=== PATIENT | female | born 1950 | race Caucasian/White ===

== ENCOUNTER → 2017-10-19 | Outpatient (CLI) | payer MEDICARE | LOC: MAMMO 10:33 | PROVIDERS: ATTEND Internal Medicine | DX: Z12.31 Encounter for screening mammogram for malignant neoplasm of breast (principal) | CPT/HCPCS: 77067 ==

== ENCOUNTER 2018-07-27 14:11 | Emergency (ER) | payer OTHER ==
[~2018-07-27] VITALS: Ht 162.6 cm; Wt 61.2 kg
--- OUTSIDE RECORDS SUMMARY | 2018-07-27 14:15 | XMS REPORT | Continuity of Care Document ---
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 Well controlled per Mrs. Shi. Routine blood work, including Keppra and total phenytoin levels, will be drawn. Treatment with the current doses of the same medications will be continued. 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 [facility] Recurrent major depression in partial remission<sup>17, 18</sup> Active 07/09/2016 Problem 07/02/2018 Data migrated from [employer] on 07/04/2016. Well controlled per the patient. Treatment with venlafaxine will be continued. Originally documented as Recurrent major depressive disorder, in partial remission. [facility] Cervical radiculopathy<sup>3, 4, 5, 6</sup> Active 06/30/2016 Problem 07/02/2018 Data migrated from [employer] on 07/04/2016. Please see above. Originally documented as Right cervical radiculopathy. 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 The symptoms the patient describes in the history of present illness and findings on the neurological examination are suggestive of either median neuropathy(ies) at the wrists and/or cervical radiculopathies. Ms. Shi declines further evaluation or darrius Originally documented as Left median nerve neuropathy. 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 With hemorrhagic conversion, s/p resection. Originally documented as Benign neoplasm of brain, unspecified brain region. [facility] STROKE Active 02/27/2016 [facility] Epilepsy<sup>7, 8</sup> Active 10/23/2015 Problem 07/02/2018 Data migrated from [employer] on 06/16/15. The patient s seizures are well controlled with Keppra and phenytoin (when she takes both medications). Routine blood work, including a phenytoin level, will be ordered. Ms. Shi will continue with her current treatment with Keppra and phenytoin. Originally documented as Epilepsy. [facility] Mood disorder of depressed type<sup>15</sup> Active 10/23/2015 Problem 07/02/2018 Data migrated from [employer] on 06/16/15. Well controlled. Treatment with venlafaxine ER will be continued. Originally documented as Depression. [facility] O/E - depressed<sup>16</sup> Active 12/20/2014 Problem 07/02/2018 Data migrated from [employer] on 06/16/15. Stable. Continue treatment with venlafaxine. Originally documented as Depression. [facility] SEIZURE Active 11/11/2014 [facility] SEIZURES Active 11/11/2014 [facility] COMPLEX FOCAL SEIZURES Active 04/29/2014 [facility] LEFT SIDE WEAKNESS Active 03/08/2014 [facility] Acute renal failure Resolved Problem 07/02/2018 [facility] Brain tumor Resolved Problem 07/02/2018 [facility] Breast augmentation Resolved Problem 07/02/2018 [facility] Parkinsons Resolved Problem 07/02/2018 [facility] Peripheral vision loss Resolved Problem 07/02/2018 [facility] Seizure<sup>19</sup> Resolved Problem 07/02/2018 Post brain tumor [facility] Grand mal seizure Resolved Problem 07/02/2018 [facility] MIXER DIAMOND POWDER shunt Resolved Problem 07/02/2018 [facility] Seizure<sup>1</sup> Resolved Problem 03/01/2016 Post brain tumor [facility] Depression Active Problem 12/24/2014 E[facility] Epilepsy Active Diagnosis 12/24/2014 Elig[facility] Bern Depression Active Problem 06/12/2016 Eligio Henrietta Epilepsy Active Problem 06/08/2016 Eligio Henrietta Genital herpes Active Diagnosis 03/29/2015 Eligio Henrietta Nonintractable generalized idiopathic epilepsy without status epilepticus Active Diagnosis 07/13/2016 Eligio Henrietta Recurrent major depressive disorder, in partial remission Active Problem 07/13/2016 Eligio Henrietta Benign neoplasm of brain, unspecified brain region Active Problem 07/13/2016 Eligio Bern Left cervical radiculopathy Active Problem 07/13/2016 Eligio Bern Right cervical radiculopathy Active Problem 07/13/2016 Eligio Bern Left median nerve neuropathy Active Problem 07/13/2016 Eligio Henrietta Right median nerve neuropathy Active Problem 07/13/2016 Eligio Henrietta Medications Medication Details Route Status Patient Instructions Ordering Provider Order Date Source phenytoin 100 mg oral capsule, extended release See Instructions, TAKE 3 CAPSULES BY MOUTH EVERY NIGHT FOR 30 DAYS, # 90 tab, 0 Refill(s), Pharmacy: [facility] [id number] Active 12/02/2017 [facility] Unisom 25 mg, PO, Daily, 0 Refill(s) Active 04/25/2017 [facility] Levetiracetam 500 MG Oral Tablet [Keppra] 1,000 mg=2 tab, PO, BID, # 120 tab, 0 Refill(s) Active 02/27/2016 [facility] Acetaminophen 975 mg, Route: PO, Drug form: TAB, ONCE, Dosing Weight 62.727, kg, Priority: STAT, Start date: 02/27/16 15:28:00 CDT, Stop date: 02/27/16 15:28:00 CDT Inactive 02/27/2016 [facility] Versed 2 mg, Route: IVP, ONCE, Dosing Weight 62.727, kg, Priority: STAT, Start date: 02/27/16 15:18:00 CDT, Stop date: 02/27/16 15:18:00 CDT Inactive 02/27/2016 [facility] iodixanol 150 mL, Route: IVP, Drug Form: SOLN, kg, ONCALL, STAT, Start date: 02/27/16 14:19:00 CDT, Duration: 1 doses or times, Dose=2.2ml/kg, Max [id number] -- "To be infused by Radiology Staff ONLY" Inactive 02/27/2016 [facility] Keppra 1,000 mg, Route: IV, ONCE, kg, Start date: 02/27/16 14:10:00 CDT, Stop date: 02/27/16 14:10:00 CDTNotes: Same as Keppra Mix with 100 mL NS, LR or D5W MEDICATION WASTE Product Size: 500 mg Product Wasted: ___ mg Inactive 02/27/2016 [facility] Saline Flush 0.9% 10 mL, Route: IVP, Drug Form: INJ, kg, PRN, PRN Line Flush, Start date: 02/27/16 13:31:00 CDT, Duration: 30 day, Stop date: 03/28/16 13:30:00 CDTNotes: (Same as: BD Posiflush) Inactive 02/27/2016 [facility] Isolyte S (PH 7.4) 1000 mL 1,000 mL 1,000 mL, Rate: 1,000 ml/hr, Infuse over: 1 hr, Route: IV, Total Volume: 1,000, Priority: STAT, Start date: 02/27/16 13:31:00 CDT, Stop date: 02/27/16 17:30:00 CDTNotes: (Same as: Isolyte S PH 7.4) Inactive 02/27/2016 [facility] Saline Flush 0.9% 10 mL, Route: IVP, Drug Form: INJ, kg, PRN, PRN Line Flush, Start date: 02/27/16 13:30:00 CDT, Duration: 30 day, Stop date: 03/28/16 13:29:00 CDTNotes: (Same as: BD Posiflush) Inactive 02/27/2016 [facility] Acyclovir 1 tablet Orally Active 400 MG Orally as needed Bern 03/28/2015 Eligio Bern Phenytoin Sodium Extended 3 capsules Orally Active 100 mg Orally Once every night Jose Ramon 12/16/2014 Eligio Henrietta phenytoin extended release 300 mg, 3 cap, Route: PO, Drug form: ERCAP, Bedtime, Dosing Weight 64.574, kg, Start date: 11/12/14 21:00:00, Duration: 30 day, Stop date: 12/11/14 21:00:00 Inactive 11/13/2014 [facility] Sodium Chloride 0.9% IV 25 mL, Route: IV, Start date: 11/12/14 11:14:00, Duration: 30 day, Stop date: 12/12/14 11:13:00, PRN Line Flush Inactive 11/12/2014 [facility] BD Normal Saline Flush 10 mL, Route: IV, Drug Form: INJ, PRN, PRN Line Flush, Start date: 11/12/14 11:14:00, Duration: 30 day, Stop date: 12/12/14 11:13:00Notes: (Same as: BD Posiflush) Inactive 11/12/2014 [facility] Levetiracetam 1000 MG Oral Tablet [Keppra] 1,000 mg=1 tab, PO, BID, # 60 tab, 2 Refill(s) Active 11/12/2014 [facility] phenytoin 100 mg oral capsule, extended release 300 mg=3 cap, PO, Bedtime, # 90 cap, 0 Refill(s) Active 11/12/2014 [facility] venlafaxine 150 mg, 1 cap, Route: PO, Drug form: ERCAP, Daily, Dosing Weight 64.574, kg, Start date: 11/12/14 9:00:00, Duration: 30 day, Stop date: 12/11/14 9:00:00Notes: Do not open, crush, or chew. (Same As: Effexor XR) Inactive 11/12/2014 [facility] Dilantin 100 mg, 2 mL, Route: IVP, Drug form: INJ, Q8H, Dosing Weight 61.364, kg, Start date: 11/12/14 4:00:00, Duration: 30 day, Stop date: 12/11/14 20:00:00Notes: (Same as: Dilantin) Do not infuse greater than 50 mg/min. MEDICATION WASTE Product Size: 100 mg Product Wasted: ___ mg Inactive 11/12/2014 [facility] Levetiracetam 1000 MG Oral Tablet [Keppra] 1,000 mg=1 tab, PO, BID, # 60 tab, 0 Refill(s) No Longer Active 11/12/2014 [facility] Levetiracetam 1000 MG Oral Tablet [Keppra] 1,000 mg, 2 tab, Route: PO, Drug form: TAB, Q12H, Dosing Weight 61.364, kg, Start date: 11/11/14 22:00:00, Duration: 30 day, Stop date: 12/11/14 21:00:00Notes: (Same as:Keppra) No Longer Active 11/12/2014 [facility] Docusate 100 mg, 1 cap, Route: PO, Drug form: CAP, BID, Dosing Weight 61.364, kg, PRN Constipation, Start date: 11/11/14 21:06:00, Duration: 30 day, Stop date: 12/11/14 21:05:00Notes: (Same as: Colace) (Do Not Crush) No Longer Active 11/12/2014 [facility] Acetaminophen 650 mg, 2 tab, Route: PO, Drug form: TAB, Q4H, Dosing Weight 61.364, kg, PRN Pain 1-3/Temp > 100.4 F, Start date: 11/11/14 21:06:00, Duration: 30 day, Stop date: 12/11/14 21:05:00Notes: Do not exceed 4 gm/day. (Same as: Tylenol) No Longer Active 11/12/2014 [facility] Acetaminophen 325 MG / Hydrocodone Bitartrate 5 MG Oral Tablet 1 tab, Route: PO, Drug Form: TAB, Dosing Weight 61.364, kg, Q4H, PRN Pain Score 1-3, Start date: 11/11/14 21:06:00, Duration: 30 day, Stop date: 12/11/14 21:05:00Notes: (Same as: [place] 325/5) Do not exceed 4gm/day of acetaminophen. No Longer Active 11/12/2014 [facility] fosphenytoin 1,227.28 mg, 24.55 mL, Route: IVPB, Drug form: INJ, ONCE, Dosing Weight 61.364, kg, Priority: STAT, Start date: 11/11/14 20:14:00, Stop date: 11/11/14 20:14:00Notes: (Same as: Cerebyx) Stated mg=mgPE. Refrigerate ANTICONVULSANT Do not confuse with celebrex. MEDICATION WASTE Product Size: 500 mg Product Wasted: 727.28 mg Inactive 11/12/2014 [facility] Saline Flush 0.9% 10 mL, Route: IVP, Drug Form: INJ, Dosing Weight 61.364, kg, PRN, PRN Line Flush, Start date: 11/11/14 18:21:00, Duration: 30 day, Stop date: 12/11/14 18:20:00Notes: (Same as: BD Posiflush) No Longer Active 11/11/2014 [facility] Vimpat 1 tablet Orally Active 100 MG Orally Twice a day Jose Ramon 05/06/2014 Eligio Potts Keppra 1,000 mg, 2 tab, Route: PO, Drug form: TAB, Q12H, Dosing Weight 60.4, kg, Start date: 03/09/14 21:00:00, Duration: 30 day, Stop date: 04/08/14 9:00:00Notes: (Same as:Keppra) Inactive 03/10/2014 [facility] Enoxaparin 40 mg, 0.4 mL, Route: SUB-Q, Drug form: INJ, [id number], Dosing Weight 60.4, kg, Start date: 03/09/14 13:00:00, Duration: 30 day, Stop date: 04/07/14 13:00:00Notes: (Same as: Lovenox) Inactive 03/09/2014 [facility] Levetiracetam 500 MG Oral Tablet 1,000 mg=2 tab, PO, Q12H, # 2 tab, 1 Refill(s) Active 03/09/2014 [facility] BD Normal Saline Flush 5 mL, Route: IV, Drug Form: INJ, PRN, PRN Line Flush, Start date: 03/09/14 3:02:00, Duration: 30 day, Stop date: 04/08/14 2:01:00Notes: (Same as: BD Posiflush) Inactive 03/09/2014 [facility] Sodium Chloride 0.9% IV 25 mL, Route: IV, Start date: 03/09/14 3:02:00, Duration: 30 day, Stop date: 04/08/14 2:01:00, PRN Line Flush Inactive 03/09/2014 [facility] venlafaxine 150 mg oral tablet, extended release 150 mg=1 tab, PO, Daily, # 30 tab, 0 Refill(s) Active 03/09/2014 [facility] Lorazepam 1 mg, 0.5 mL, Route: IVP, Drug form: INJ, Q15Min, Dosing Weight 60.006, kg, PRN Seizure, Start date: 03/08/14 18:45:00, Duration: 30 day, Stop date: 04/07/14 17:44:00Notes: (Same as: Ativan) No Longer Active 03/08/2014 [facility] Fluoxetine =1 cap, PO, Daily, 0 Refill(s) Inactive 03/08/2014 [facility] Keppra 1,000 mg, 100 mL, Route: IV, Drug form: SOLN, [id number], Dosing Weight 78.182, kg, Priority: NOW, Start date: 03/08/14 15:32:00, Duration: 30 day, Stop date: 04/07/14 3:32:00 No Longer Active 03/08/2014 [facility] Saline Flush 0.9% 10 mL, Route: IVP, Drug Form: INJ, Dosing Weight 78.182, kg, PRN, PRN Line Flush, Start date: 03/08/14 14:31:00, Duration: 30 day, Stop date: 04/07/14 13:30:00Notes: (Same as: BD Posiflush) No Longer Active 03/08/2014 [facility] Saline Flush 0.9% 10 mL, Route: IVP, Drug Form: INJ, Dosing Weight 78.182, kg, PRN, PRN Line Flush, Start date: 03/08/14 14:30:00, Duration: 30 day, Stop date: 04/07/14 13:29:00Notes: (Same as: BD Posiflush) No Longer Active 03/08/2014 [facility] Venlafaxine HCl ER 1 tablet with food Orally Active 150MG Orally Once a day Bern Eligio Bern Levetiracetam 1 tablet Orally Active 1000 mg Orally Twice a day Jose Ramon Eligio Henrietta Sleep Aid 1 tablet at bedtime as needed Orally Active Orally Once a day Jose Ramon Eligio Bern Levetiracetam 1 tablet Orally Active 1000 mg Orally Twice a day Jose Ramon Eligio Bern Levetiracetam 2.5 tablets Orally Active 500 MG Orally Twice a day Jose Ramon Potts Night Time Sleep Aid 1 tablet at bedtime Orally Active 50 mg Orally Once a day Henrietta Eligio Jamesum Levetiracetam 1 tablet Orally Active 250 MG Orally Twice a day Jose Ramon Eligio Jamesum Levetiracetam 1 tablet Orally Active 1000MG Orally Twice a day Henrietta Eligio Henrietta Phenytoin Sodium Extended 3 capsules Once every night Orally 30 days Orally Active 100 MG Orally Once a day Bern Eligio Bern Phenytoin Sodium Extended TAKE 3 CAPSULES BY MOUTH EVERY NIGHT FOR 30 DAYS NA Active 100MG Henrietta Ledbetter Henrietta Allergies, Adverse Reactions, Alerts Substance Category Reaction Severity Reaction type Status Date Reported Comments Source N.K.D.A. Adverse Reaction Info Not Available Adverse Reaction Active 06/30/2016 E[facility]io [facility] Immunizations Immunization Date Given Site Status Last Updated Comments Source influenza virus vaccine, inactivated 04/30/2014 Left deltoid completed [facility] Results Order Name Results Value Reference Range Date Interpretation Comments Source Foot series DX Foot series DX EXAM: XR LEFT FOOT 3 VIEWS EXAM: XR RIGHT FOOT 3 VIEWS DATE: 09/22/2017 11:38 AM CDT INDICATION: - s/p jump from 5 ft, landed on feet w/ B midfoot/heel pain. mild TTP L1-2 midline COMPARISON: None TECHNIQUE: AP, lateral and oblique radiographs of each foot DISCUSSION: No acute fracture or malalignment is identified. No soft tissue abnormality is identified. IMPRESSION: No acute abnormality. 09/22/2017 - - Read by: Thomas Bob MD Dictated Date/time: 09/22/17 12:43 Electronically Signed by: Thomas Bob MD 09/22/17 12:44 FINAL REPORT [facility] Spine lumbar 2 or 3 views DX Spine lumbar 2 or 3 views DX EXAM: XR LUMBAR SPINE 3 VIEWS DATE: 09/22/2017 11:38 AM CDT INDICATION: - s/p jump from 5 ft, landed on feet w/ B midfoot/heel pain. mild TTP L1-2 midline COMPARISON: None TECHNIQUE: AP, coned lateral and lateral radiographs of the lumbar spine FINDINGS: No fracture or other acute bony or articular abnormality is present. Alignment is within normal limits. There is no significant osseous degenerative change. No soft tissue abnormality is identified. IMPRESSION: No acute abnormality. 09/22/2017 - - Read by: Thomas Bob MD Dictated Date/time: 09/22/17 12:44 Electronically Signed by: Thomas Bob MD 09/22/17 12:45 FINAL REPORT [facility] Foot series DX Foot series DX EXAM: XR LEFT FOOT 3 VIEWS EXAM: XR RIGHT FOOT 3 VIEWS DATE: 09/22/2017 11:38 AM CDT INDICATION: - s/p jump from 5 ft, landed on feet w/ B midfoot/heel pain. mild TTP L1-2 midline COMPARISON: None TECHNIQUE: AP, lateral and oblique radiographs of each foot DISCUSSION: No acute fracture or malalignment is identified. No soft tissue abnormality is identified. IMPRESSION: No acute abnormality. 09/22/2017 - - Read by: Thomas Bob MD Dictated Date/time: 09/22/17 12:43 Electronically Signed by: Thomas Bob MD 09/22/17 12:44 FINAL REPORT [facility] CHEM PANEL Phosphorus 3.2 mg/dL 2.5 - 4.5 02/27/2016 [facility] CHEM PANEL Magnesium Lvl 2.2 mg/dL 1.8 - 2.4 02/27/2016 [facility] CHEM PANEL Lactic Acid Lvl 1.5 mMol/L 0.5 - 2.2 02/27/2016 [facility] TOXICOLOGY Phenytoin Total 6.0 ug/ml 10.0 - 20.0 02/27/2016 Result Comment: Specimen Moderately Hemolyzed. [facility] DRUG SCREEN U Opiate Scr Negative *NA* (02/27/16 3:30 PM) Negative 02/27/2016 [facility] DRUG SCREEN U Cannab Scr Negative *NA* (02/27/16 3:30 PM) Negative 02/27/2016 [facility] DRUG SCREEN U Benzodia Scr Positive *ABN* (02/27/16 3:30 PM) Negative 02/27/2016 [facility] DRUG SCREEN U Cocaine Scr Negative *NA* (02/27/16 3:30 PM) Negative 02/27/2016 [facility] DRUG SCREEN U Marissa Scr Negative *NA* (02/27/16 3:30 PM) Negative 02/27/2016 [facility] DRUG SCREEN UDS Note See Note (02/27/16 3:30 PM) 02/27/2016 [facility] DRUG SCREEN U Phencyc Scr Negative *NA* (02/27/16 3:30 PM) Negative 02/27/2016 [facility] DRUG SCREEN U Amph Scr Negative *NA* (02/27/16 3:30 PM) Negative 02/27/2016 [facility] URINE AND STOOL UA Nitrite Positive *ABN* (02/27/16 2:30 PM) Negative 02/27/2016 [facility] URINE AND STOOL UA Urobilinogen 0.2 EU/dL 0.1 - 1.0 02/27/2016 [facility] URINE AND STOOL UA Blood Trace *ABN* (02/27/16 2:30 PM) Negative 02/27/2016 [facility] URINE AND STOOL UA Leuk Est Small *ABN* (02/27/16 2:30 PM) Negative 02/27/2016 [facility] URINE AND STOOL UA Glucose Negative (02/27/16 2:30 PM) Negative 02/27/2016 [facility] URINE AND STOOL UA Bili Negative *NA* (02/27/16 2:30 PM) Negative 02/27/2016 [facility] URINE AND STOOL UA Ketones Negative *NA* (02/27/16 2:30 PM) Negative 02/27/2016 [facility] URINE AND STOOL UA Protein Negative (02/27/16 2:30 PM) Negative 02/27/2016 [facility] URINE AND STOOL UA pH 7.5 5.0 - 8.0 02/27/2016 [facility] URINE AND STOOL UA Spec Grav 1.015 <=1.030 02/27/2016 [facility] URINE AND STOOL UA Turbidity Slight Cloudy (02/27/16 2:30 PM) Clear 02/27/2016 [facility] URINE AND STOOL UA Color Yellow *NA* (02/27/16 2:30 PM) Yellow 02/27/2016 [facility] URINE AND STOOL UA Amorph Lu Occasional /HPF None Seen /HPF 02/27/2016 [facility] URINE AND STOOL UA Bacteria Many /HPF None Seen /HPF 02/27/2016 [facility] URINE AND STOOL UA Sq Epi Occasional /LPF Few /LPF 02/27/2016 [facility] URINE AND STOOL UA RBC 3-5 /HPF 0 - 2 02/27/2016 [facility] URINE AND STOOL UA WBC 6-10 /HPF None Seen /HPF 02/27/2016 [facility] BLOOD BANK RESULTS Antibody Scrn Negative (02/27/16 2:10 PM) 02/27/2016 [facility] BLOOD BANK RESULTS ABO/Rh A POS 02/27/2016 [facility] CHEM PANEL POC Creatinine 1.0 mg/dL 0.5 - 1.4 02/27/2016 [facility] CHEM PANEL eGFR 42 mL/min/1.73m2 02/27/2016 Result Comment: The eGFR is calculated using the CKD-EPI formula. In most young, healthy individuals the eGFR will be >90 mL/min/1.73m2. The eGFR declines with age. An eGFR of 60-89 may be normal in some populations, particularly the elderly, for whom the CKD-EPI formula has not been extensively validated. Use of the eGFR is not recommended in the following populations: Individuals with unstable creatinine concentrations, including patients and those with serious co-morbid conditions. Patients with extremes in muscle mass or diet. The data above are obtained from the National Kidney Disease Education Program (NKDEP) which additionally recommends that when the eGFR is used in patients with extremes of body mass index for purposes of drug dosing, the eGFR should be multiplied by the estimated BMI. [facility] CARDIAC ENZYMES CK MB Index 1.1 0.0 - 2.5 02/27/2016 [facility] CARDIAC ENZYMES Troponin-I 0.03 ng/mL 0.00 - 0.40 02/27/2016 [facility] CARDIAC ENZYMES Total CK 108 unit/L 12 - 191 02/27/2016 [facility] CARDIAC ENZYMES CK MB 1.2 ng/mL 0.5 - 3.6 02/27/2016 [facility] CHEM PANEL Lactic Acid Lvl 10.2 mMol/L 0.5 - 2.2 02/27/2016 Result Comment: Critical Result(s) called to at 02/27/2016 14:08_ by_cMaria Doloreskirkland. Read back OK. [facility] ELECTROLYTES AGAP 22.6 meq/L 10.0 - 20.0 02/27/2016 [facility] ELECTROLYTES eGFR 36 mL/min/1.73m2 02/27/2016 Result Comment: The eGFR is calculated using the CKD-EPI formula. In most young, healthy individuals the eGFR will be >90 mL/min/1.73m2. The eGFR declines with age. An eGFR of 60-89 may be normal in some populations, particularly the elderly, for whom the CKD-EPI formula has not been extensively validated. Use of the eGFR is not recommended in the following populations: Individuals with unstable creatinine concentrations, including patients and those with serious co-morbid conditions. Patients with extremes in muscle mass or diet. The data above are obtained from the National Kidney Disease Education Program (NKDEP) which additionally recommends that when the eGFR is used in patients with extremes of body mass index for purposes of drug dosing, the eGFR should be multiplied by the estimated BMI. [facility] ELECTROLYTES Potassium Lvl 3.6 meq/L 3.5 - 5.1 02/27/2016 [facility] ELECTROLYTES Sodium Lvl 143 meq/L 135 - 145 02/27/2016 [facility] ELECTROLYTES Creatinine Lvl 1.12 mg/dL 0.50 - 1.40 02/27/2016 [facility] ELECTROLYTES BUN 12 mg/dL 7 - 22 02/27/2016 [facility] ELECTROLYTES Chloride Lvl 102 meq/L 95 - 109 02/27/2016 [facility] ELECTROLYTES CO2 22 meq/L 24 - 32 02/27/2016 [facility] ELECTROLYTES Glucose Lvl 128 mg/dL 70 - 99 02/27/2016 [facility] ELECTROLYTES Calcium Lvl 8.9 mg/dL 8.5 - 10.5 02/27/2016 [facility] ENDOCRINOLOGY S Preg Negative *NA* (02/27/16 1:30 PM) Negative 02/27/2016 [facility] HEMATOLOGY Basophils 0.5 % 0.0 - 1.0 02/27/2016 [facility] HEMATOLOGY Monocytes # 0.4 K/CMM 0.0 - 0.8 02/27/2016 [facility] HEMATOLOGY Segs-Bands # 6.2 K/CMM 1.5 - 8.1 02/27/2016 [facility] HEMATOLOGY Lymphocytes # 1.1 K/CMM 1.0 - 5.5 02/27/2016 [facility] HEMATOLOGY Lymphocytes 14.3 % 20.0 - 40.0 02/27/2016 [facility] HEMATOLOGY Monocytes 4.7 % 2.0 - 12.0 02/27/2016 [facility] HEMATOLOGY Eosinophils 0.4 % 0.0 - 4.0 02/27/2016 [facility] HEMATOLOGY Segs 80.1 % 45.0 - 75.0 02/27/2016 [facility] HEMATOLOGY Estimated % Lysis Rapid 0.8 % 0.0 - 7.5 02/27/2016 [facility] HEMATOLOGY R-time Rapid 0.5 min 0.4 - 0.7 02/27/2016 [facility] [facility] HEMATOLOGY [place] Rapid 0.4 min 02/27/2016 [facility] HEMATOLOGY ACT (TEG) Rapid 97 s 86 - 118 02/27/2016 [facility] HEMATOLOGY K-time Rapid 1.1 min 0.6 - 2.3 02/27/2016 [facility] HEMATOLOGY Max Amplitude Rapid 69 mm 52 - 71 02/27/2016 [facility] HEMATOLOGY Angle Rapid 76 degrees 64 - 80 02/27/2016 [facility] HEMATOLOGY G-value Rapid 10.9 K d/sc 5.0 - 11.6 02/27/2016 [facility] HEMATOLOGY PTT 29.2 s 22.9 - 35.8 02/27/2016 [facility] HEMATOLOGY INR 1.01 0.85 - 1.17 02/27/2016 [facility] HEMATOLOGY PT 13.5 s 12.0 - 14.7 02/27/2016 [facility] HEMATOLOGY Platelet 248 K/CMM 133 - 450 02/27/2016 [facility] HEMATOLOGY RDW 13.6 % 11.5 - 14.5 02/27/2016 [facility] HEMATOLOGY MCHC 33.4 g/dL 32.0 - 36.0 02/27/2016 [facility] HEMATOLOGY MPV 8.2 fL 7.4 - 10.4 02/27/2016 [facility] HEMATOLOGY WBC 7.7 K/CMM 3.7 - 10.4 02/27/2016 [facility] HEMATOLOGY Hgb 14.4 g/dL 12.0 - 16.0 02/27/2016 [facility] HEMATOLOGY MCV 97.5 fL 80.0 - 98.0 02/27/2016 [facility] HEMATOLOGY RBC 4.43 M/CMM 4.20 - 5.40 02/27/2016 [facility] HEMATOLOGY Hct 43.2 % 36.0 - 48.0 02/27/2016 [facility] HEMATOLOGY MCH 32.6 pg 27.0 - 31.0 02/27/2016 [facility] TOXICOLOGY Ethanol Lvl <3.0 mg/dL 02/27/2016 [facility] TOXICOLOGY Etoh (%) <0.003 % 02/27/2016 [facility] Chest 1view DX Chest 1view DX EXAM: XR CHEST 1 VIEW DATE: 02/27/2016 at 1408 hours INDICATION: Grand mal seizure COMPARISON: None available TECHNIQUE: AP chest FINDINGS: Lines and tubes: MIXER DIAMOND POWDER shunt is partially visualized on the right. Lungs and pleura: No pulmonary or pleural based abnormality is identified. Heart and mediastinum: The heart size is normal for technique. The mediastinal contours are normal. Bones: No acute bony abnormality is identified. IMPRESSION: No acute cardiopulmonary abnormality. 02/27/2016 - - Read by: Rose Sanders MD Dictated Date/time: 02/27/16 15:12 Electronically Signed by: Rose Sanders MD 02/27/16 15:13 FINAL REPORT [facility] Spine cervical wo contrast CT Spine cervical wo contrast CT EXAM: CT CERVICAL SPINE WITHOUT CONTRAST DATE: 02/27/2016 at 1337 hours INDICATION: Pain Post Trauma COMPARISON: None. TECHNIQUE: Volumetric CT acquisition of the cervical spine without contrast. Axial, sagittal and coronal reconstructions. IV contrast: None. DLP: 1242 mGy-cm FINDINGS: The spine is imaged from the skull base to the level of T2. There is smooth kyphosis of the cervical spine. Severe multilevel degenerative changes of the spine are visualized most pronounced from C4 to T1 with disc space narrowing, degenerative endplate changes,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 27.0 - 31.0 03/08/2014 [facility] HEMATOLOGY MCV 92.8 fL 80.0 - 98.0 03/08/2014 [facility] HEMATOLOGY MCHC 34.1 g/dL 32.0 - 36.0 03/08/2014 [facility] HEMATOLOGY RBC 4.21 M/CMM 4.20 - 5.40 03/08/2014 [facility] HEMATOLOGY Hct 39.1 % 36.0 - 48.0 03/08/2014 [facility] HEMATOLOGY Hgb 13.3 g/dL 12.0 - 16.0 03/08/2014 [facility] HEMATOLOGY RDW 14.1 % 11.5 - 14.5 03/08/2014 [facility] HEMATOLOGY Platelet 331 K/CMM 133 - 450 03/08/2014 [facility] HEMATOLOGY MPV 8.4 fL 7.4 - 10.4 03/08/2014 [facility] Vital Signs Vital Sign Value Date Comments Source Height 162.56 cm 04/25/2017 [facility] BMI Calculated 22.29 04/25/2017 [facility] Weight 58.909 04/25/2017 [facility] Systolic (mm Hg) 144 04/25/2017 [facility] Diastolic (mm Hg) 79 04/25/2017 [facility] Heart Rate 72 04/25/2017 [facility] Weight 128.6 06/30/2016 [facility] Height 65 06/30/2016 [facility] Heart Rate 76 06/30/2016 [facility] Diastolic (mm Hg) 91 06/30/2016 [facility] Systolic (mm Hg) 150 06/30/2016 [facility] Systolic (mm Hg) 177 02/27/2016 [facility] Diastolic (mm Hg) 93 02/27/2016 [facility] Respitory Rate 63 02/27/2016 [facility] Systolic (mm Hg) 177 02/27/2016 [facility] Diastolic (mm Hg) 93 02/27/2016 [facility] Respitory Rate 61 02/27/2016 [facility] Systolic (mm Hg) 177 02/27/2016 [facility] Diastolic (mm Hg) 93 02/27/2016 [facility] Respitory Rate 61 02/27/2016 [facility] BMI Calculated 23.74 02/27/2016 [facility] Weight 62.727 02/27/2016 [facility] Height 162.56 cm 02/27/2016 [facility] Heart Rate 86 02/27/2016 [facility] Weight 140.8 10/23/2015 [facility] Height 65 10/23/2015 [facility] Heart Rate 66 10/23/2015 [facility] Diastolic (mm Hg) 83 10/23/2015 [facility] Systolic (mm Hg) 121 10/23/2015 [facility] Weight 138.8 08/21/2015 [facility] Height 65 08/21/2015 [facility] Heart Rate 73 08/21/2015 [facility] Diastolic (mm Hg) 90 08/21/2015 [facility] Systolic (mm Hg) 166 08/21/2015 [facility] Weight 133.6 03/28/2015 Eligio Henri[facility] Height 65 03/28/2015 [facility] Heart Rate 80 03/28/2015 [facility] Diastolic (mm Hg) 89 03/28/2015 [facility] Systolic (mm Hg) 135 03/28/2015 [facility] Weight 134.8 12/20/2014 [facility] Height 65 12/20/2014 [facility] Heart Rate 70 12/20/2014 [facility] Diastolic (mm Hg) 80 12/20/2014 [facility] Systolic (mm Hg) 159 12/20/2014 [facility] Systolic (mm Hg) 148 11/12/2014 [facility] Diastolic (mm Hg) 56 11/12/2014 [facility] Temperature Oral (F) 98.1 F 11/12/2014 [facility] Systolic (mm Hg) 120 11/12/2014 [facility] Diastolic (mm Hg) 66 11/12/2014 [facility] Heart Rate 71 11/12/2014 [facility] Respitory Rate 18 11/12/2014 [facility] Systolic (mm Hg) 133 11/12/2014 [facility] Diastolic (mm Hg) 72 11/12/2014 [facility] Temperature Oral (F) 98.4 F 11/12/2014 [facility] Heart Rate 61 11/12/2014 [facility] Respitory Rate 18 11/12/2014 [facility] Heart Rate 75 11/12/2014 [facility] Temperature Oral (F) 97.9 F 11/12/2014 [facility] Respitory Rate 17 11/12/2014 [facility] Weight 64.574 11/12/2014 [facility] BMI Calculated 24.44 11/12/2014 [facility] Height 162.56 cm 11/12/2014 [facility] Weight 61.364 11/11/2014 [facility] BMI Calculated 23.22 11/11/2014 [facility] Height 162.56 cm 11/11/2014 [facility] Weight 137.0 10/24/2014 [facility] Height 65 10/24/2014 [facility] Heart Rate 56 10/24/2014 [facility] Diastolic (mm Hg) 78 10/24/2014 [facility]etta Systolic (mm Hg) 116 10/24/2014 [facility] Diastolic (mm Hg) 87 03/09/2014 [facility] Temperature Oral (F) 98.2 F 03/09/2014 [facility] Respitory Rate 15 03/09/2014 [facility] Systolic (mm Hg) 132 03/09/2014 [facility] Systolic (mm Hg) 140 03/09/2014 [facility] Respitory Rate 14 03/09/2014 [facility] Temperature Oral (F) 98.4 F 03/09/2014 [facility] Diastolic (mm Hg) 86 03/09/2014 [facility] Systolic (mm Hg) 164 03/09/2014 [facility] Diastolic (mm Hg) 75 03/09/2014 [facility] Respitory Rate 13 03/09/2014 [facility] Temperature Oral (F) 98 F 03/09/2014 [facility] BMI Calculated 22.86 03/09/2014 [facility] Weight 60.4 03/09/2014 [facility] Height 162.56 cm 03/09/2014 [facility] Height 162.56 cm 03/08/2014 [facility] BMI Calculated 22.71 03/08/2014 [facility] Weight 60.006 03/08/2014 [facility] Heart Rate 74 03/08/2014 [facility] Height 175.26 cm 03/08/2014 [facility] Heart Rate 79 03/08/2014 [facility] BMI Calculated 25.45 03/08/2014 [facility] Weight 78.182 03/08/2014 [facility] Heart Rate 96 03/08/2014 [facility] Encounters Location Location Details Encounter Type Encounter Number Reason For Visit Attending Provider ADM Date DC Date Status Source [facility] OBS Observation Patient [id number] Luther Brito 03/08/2014 03/09/2014 [facility] Eligio Potts MD, PA f/u [id number] 07/29/2014 07/29/2014 Eligio Potts MD, PA f/u [id number] 07/29/2014 07/29/2014 Eligio Potts MD, PA f/u [id number] 07/29/2014 07/29/2014 Eligio Potts MD, PA f/u [id number] 07/29/2014 07/29/2014 Eligio Potts MD, PA f/u [id number] 07/29/2014 07/29/2014 Eligio Potts MD, PA f/u [id number] 07/29/2014 07/29/2014 Eligio Potts MD, PA f/u [id number] 07/29/2014 07/29/2014 Eligio Potts MD, PA f/u [id number] 07/29/2014 07/29/2014 Eligio Potts MD, PA f/u [id number] 07/29/2014 07/29/2014 Eligio Potts MD, PA f/u [id number] 07/29/2014 07/29/2014 Eligio Potts MD, PA f/u [id number] 07/29/2014 07/29/2014 Eligio Potts MD, PA f/u [id number] 07/29/2014 07/29/2014 Eligio Potts MD, PA f/u [id number] 07/29/2014 07/29/2014 Eligio Potts MD, PA f/u [id number] 07/29/2014 07/29/2014 Eligio Potts MD, PA f/u [id number] 07/29/2014 07/29/2014 Eligio Potts MD, PA f/u [id number] 07/29/2014 07/29/2014 Eligio Potts MD, PA f/u [id number] 07/29/2014 07/29/2014 Eligio Potts MD, PA Allergy to new medication [id number] 08/29/2014 08/29/2014 Eligio Potts MD, PA Allergy to new medication [id number] 08/29/2014 08/29/2014 Eligio Potts MD, PA Allergy to new medication [id number] 08/29/2014 08/29/2014 Eligio Potts MD, PA Allergy to new medication [id number] 08/29/2014 08/29/2014 Eligio Potts MD, PA Allergy to new medication [id number] 08/29/2014 08/29/2014 Eligio Potts MD, PA Allergy to new medication [id number] 08/29/2014 08/29/2014 Eligio Potts MD, PA Allergy to new medication [id number] 08/29/2014 08/29/2014 Eligio Potts MD, PA Allergy to new medication [id number] 08/29/2014 08/29/2014 Eligio Potts MD, PA Allergy to new medication [id number] 08/29/2014 08/29/2014 Eligio Potts MD, PA Allergy to new medication [id number] 08/29/2014 08/29/2014 Eligio Potts MD, PA Allergy to new medication [id number] 08/29/2014 08/29/2014 Eligio Potts MD, PA Allergy to new medication [id number] 08/29/2014 08/29/2014 Eligio Potts MD, PA Allergy to new medication [id number] 08/29/2014 08/29/2014 Eligio Potts MD, PA Allergy to new medication [id number] 08/29/2014 08/29/2014 Eligio Potts MD, PA Allergy to new medication [id number] 08/29/2014 08/29/2014 Eligio Potts MD, PA Allergy to new medication [id number] 08/29/2014 08/29/2014 Eligio Potts MD, PA Allergy to new medication [id number] 08/29/2014 08/29/2014 Eligio Potts MD, PA 2 month fu [id number] 10/24/2014 10/24/2014 Eligio Potts MD, PA 2 month fu [id number] 10/24/2014 10/24/2014 Eligio Potts MD, PA 2 month fu [id number] 10/24/2014 10/24/2014 Eligio Potts MD, PA 2 month fu [id number] 10/24/2014 10/24/2014 Eligio Potts MD, PA 2 month fu [id number] 10/24/2014 10/24/2014 Eligio Potts MD, PA 2 month fu [id number] 10/24/2014 10/24/2014 Eligio Potts MD, PA 2 month fu [id number] 10/24/2014 10/24/2014 Eligio Potts MD, PA 2 month fu [id number] 10/24/2014 10/24/2014 Eligio Potts MD, PA 2 month fu [id number] 10/24/2014 10/24/2014 Eligio Potts MD, PA 2 month fu [id number] 10/24/2014 10/24/2014 Eligio Potts MD, PA 2 month fu [id number] 10/24/2014 10/24/2014 Eligio Potts MD, PA 2 month fu [id number] 10/24/2014 10/24/2014 Eligio Potts MD, PA 2 month fu [id number] 10/24/2014 10/24/2014 Eligio Potts MD, PA 2 month fu [id number] 10/24/2014 10/24/2014 Eligio Potts MD, PA 2 month fu [id number] 10/24/2014 10/24/2014 Eligio Potts MD, PA 2 month fu [id number] 10/24/2014 10/24/2014 Eligio Potts MD, PA Rx Refill [id number] 11/06/2014 11/06/2014 Eligio Potts MD, PA Rx Refill [id number] 11/06/2014 11/06/2014 Eligio Potts MD, PA Rx Refill [id number] 11/06/2014 11/06/2014 Eligio Potts MD, PA Rx Refill [id number] 11/06/2014 11/06/2014 Eligio Potts MD, PA Rx Refill [id number] 11/06/2014 11/06/2014 Eligio Potts MD, PA Rx Refill [id number] 11/06/2014 11/06/2014 Eligio Potts MD, PA Rx Refill [id number] 11/06/2014 11/06/2014 Eligio Potts MD, [place] Rx Refill [id number] 11/06/2014 11/06/2014 Eligio Potts MD, [place] Rx Refill [id number] 11/06/2014 11/06/2014 Eligio Potts MD, [place] Rx Refill [id number] 11/06/2014 11/06/2014 Eligio Potts MD, [place] Rx Refill [id number] 11/06/2014 11/06/2014 Eligio Potts MD, PA Rx Refill [id number] 11/06/2014 11/06/2014 Eligio Potts MD, PA Rx Refill [id number] 11/06/2014 11/06/2014 Eligio Potts MD, [place] Rx Refill [id number] 11/06/2014 11/06/2014 Eligio Potts MD, PA Rx Refill [id number] 11/06/2014 11/06/2014 Eligio Potts [facility] OBS Observation Patient [id number] Al Caruso 11/11/2014 11/12/2014 [facility] Eligio Potts MD, PA Phenytoin Refill [id number] 12/16/2014 12/16/2014 Eligio Potts MD, [place] Phenytoin Refill [id number] 12/16/2014 12/16/2014 Eligio Potts MD, [place] Phenytoin Refill [id number] 12/16/2014 12/16/2014 Eligio Potts MD, [place] Phenytoin Refill [id number] 12/16/2014 12/16/2014 Eligio Potts MD, [place] Phenytoin Refill [id number] 12/16/2014 12/16/2014 Eligio Potts MD, [place] Phenytoin Refill [id number] 12/16/2014 12/16/2014 Eligio Potts MD, [facility] Phenytoin Refill [id number] 12/16/2014 12/16/2014 Eligio Potts MD, [facility] Phenytoin Refill [id number] 12/16/2014 12/16/2014 Eligio Potts MD, [place] Phenytoin Refill [id number] 12/16/2014 12/16/2014 Eligio Potts MD, PA Phenytoin Refill [id number] 12/16/2014 12/16/2014 Eligio Potts MD, PA Phenytoin Refill [id number] 12/16/2014 12/16/2014 Eligio Potts MD, PA Phenytoin Refill [id number] 12/16/2014 12/16/2014 Eligio Potts MD, PA Phenytoin Refill [id number] 12/16/2014 12/16/2014 Eligio Potts MD, PA Phenytoin Refill [id number] 12/16/2014 12/16/2014 Eligio Potts MD, PA Phenytoin Refill [id number] 12/16/2014 12/16/2014 Eligio Potts MD, PA seizures [id number] 12/20/2014 12/20/2014 Eligio Potts MD, PA seizures [id number] 12/20/2014 12/20/2014 Eligio Potts MD, PA seizures [id number] 12/20/2014 12/20/2014 Eligio Potts MD, PA seizures [id number] 12/20/2014 12/20/2014 Eligio Potts MD, PA seizures [id number] 12/20/2014 12/20/2014 Eligio Potts MD, PA seizures [id number] 12/20/2014 12/20/2014 Eligio Potts MD, [place] seizures [id number] 12/20/2014 12/20/2014 Eligio Potts MD, PA seizures [id number] 12/20/2014 12/20/2014 Eligio Potts MD, PA seizures [id number] 12/20/2014 12/20/2014 Eligio Potts MD, PA seizures [id number] 12/20/2014 12/20/2014 Eligio Potts MD, PA seizures [id number] 12/20/2014 12/20/2014 Eligio Potts MD, PA seizures [id number] 12/20/2014 12/20/2014 Eligio Potts MD, [place] seizures [id number] 12/20/2014 12/20/2014 Eligio Potts MD, PA seizures [id number] 12/20/2014 12/20/2014 Eligio Potts MD, PA seizures [id number] 12/20/2014 12/20/2014 Eligio Potts MD, PA Unknown [id number] 12/23/2014 12/23/2014 Eligio Potts MD, PA Unknown [id number] 12/23/2014 12/23/2014 Eligio Potts MD, PA Unknown [id number] 12/23/2014 12/23/2014 Eligio Potts MD, [place] Unknown [id number] 12/23/2014 12/23/2014 Eligio Potts MD, [place] Unknown [id number] 12/23/2014 12/23/2014 Eligio Potts MD, [place] Unknown [id number] 12/23/2014 12/23/2014 Eligio Potts MD, [place] Unknown [id number] 12/23/2014 12/23/2014 Eligio Potts MD, PA Unknown [id number] 12/23/2014 12/23/2014 Eligio Potts MD, [place] Unknown [id number] 12/23/2014 12/23/2014 Eligio Potts MD, [place] Unknown [id number] 12/23/2014 12/23/2014 Eligio Potts MD, PA Unknown [id number] 12/23/2014 12/23/2014 Eligio Potts MD, PA Unknown [id number] 12/23/2014 12/23/2014 Eligio [place], [place] Unknown [id number] 12/23/2014 12/23/2014 Eligio Potts MD, PA Unknown [id number] 12/23/2014 12/23/2014 Eligio Potts MD, PA Ms. Shi status [id number] 12/31/2014 12/31/2014 Eligio Potts MD, PA Ms. Shi status [id number] 12/31/2014 12/31/2014 Eligio Potts MD, PA Ms. Shi status [id number] 12/31/2014 12/31/2014 Eligio Potts MD, PA Ms. Shi status [id number] 12/31/2014 12/31/2014 Eligio Potts MD, PA Ms. Shi status [id number] 12/31/2014 12/31/2014 Eligio Potts MD, PA Ms. Shi status [id number] 12/31/2014 12/31/2014 Eligio Potts MD, PA Ms. Shi status [id number] 12/31/2014 12/31/2014 Eligio Potts MD, PA Ms. Shi status [id number] 12/31/2014 12/31/2014 Eligio Potts MD, PA Ms. Shi status [id number] 12/31/2014 12/31/2014 Eligio Potts MD, PA Ms. Shi status [id number] 12/31/2014 12/31/2014 Eligio Potts MD, PA Ms. Shi status [id number] 12/31/2014 12/31/2014 Eligio Potts MD, PA Ms. Shi status [id number] 12/31/2014 12/31/2014 Eligio Potts MD, PA Side effects [id number] 02/27/2015 02/27/2015 Eligio Potts MD, PA Side effects [id number] 02/27/2015 02/27/2015 Eligio Potts MD, PA Side effects [id number] 02/27/2015 02/27/2015 Eligio Potts MD, PA Side effects [id number] 02/27/2015 02/27/2015 Eligio Potts MD, PA Side effects [id number] 02/27/2015 02/27/2015 Eligio Potts MD, PA Side effects [id number] 02/27/2015 02/27/2015 Eligio Potts MD, PA Side effects [id number] 02/27/2015 02/27/2015 Eligio oPtts MD, PA Side effects [id number] 02/27/2015 02/27/2015 Eligio Potts MD, PA Side effects [id number] 02/27/2015 02/27/2015 Eligio Potts MD, PA Side effects [id number] 02/27/2015 02/27/2015 Eligio Potts MD, PA Side effects [id number] 02/27/2015 02/27/2015 Eligio Potts MD, PA Side effects [id number] 02/27/2015 02/27/2015 Eligio Potts MD, PA Discuss nose bleeds [id number] 03/28/2015 03/28/2015 Eligio Potts MD, PA Discuss nose bleeds [id number] 03/28/2015 03/28/2015 Eligio Potts MD, PA Discuss nose bleeds [id number] 03/28/2015 03/28/2015 Eligio Potts MD, PA Discuss nose bleeds [id number] 03/28/2015 03/28/2015 Eligio Potts MD, PA Discuss nose bleeds [id number] 03/28/2015 03/28/2015 Eligio Potts MD, PA Discuss nose bleeds [id number] 03/28/2015 03/28/2015 Eligio Potts MD, PA Discuss nose bleeds [id number] 03/28/2015 03/28/2015 Eligio Potts MD, PA Discuss nose bleeds [id number] 03/28/2015 03/28/2015 Eligio Potts MD, PA Discuss nose bleeds [id number] 03/28/2015 03/28/2015 Eligio Potts MD, PA Discuss nose bleeds [id number] 03/28/2015 03/28/2015 Eligio Potts MD, PA Discuss nose bleeds [id number] 03/28/2015 03/28/2015 Eligio Potts MD, PA Discuss nose bleeds [id number] 03/28/2015 03/28/2015 Eligio Potts MD, FIFI Amato [id number] 08/12/2015 08/12/2015 Eligio Potts MD, FIFI Amato [id number] 08/12/2015 08/12/2015 Eligio Potts MD, FIFI Amato [id number] 08/12/2015 08/12/2015 Eligio Potts MD, FIFI Amato [id number] 08/12/2015 08/12/2015 Eligio Potts MD, FIFI Amato [id number] 08/12/2015 08/12/2015 Eligio Potts MD, FIFI Amato [id number] 08/12/2015 08/12/2015 Eligio Potts MD, FIFI Amato [id number] 08/12/2015 08/12/2015 Eligio Potts MD, FIFI Amato [id number] 08/12/2015 08/12/2015 Eligio Potts MD, FIFI Amato [id number] 08/12/2015 08/12/2015 Eligio Potts MD, FIFI Amato [id number] 08/12/2015 08/12/2015 Eligio Potts MD, FIFI Amato [id number] 08/12/2015 08/12/2015 Eligio Potts MD, PA Follow up after hospital discharge. [id number] 08/21/2015 08/21/2015 Eligio Potts MD, PA Follow up after hospital discharge. [id number] 08/21/2015 08/21/2015 Eligio Potts MD, PA Follow up after hospital discharge. [id number] 08/21/2015 08/21/2015 Eligio Potts MD, PA Follow up after hospital discharge. [id number] 08/21/2015 08/21/2015 Eligio Potts MD, PA Follow up after hospital discharge. [id number] 08/21/2015 08/21/2015 Eligio Potts MD, PA Follow up after hospital discharge. [id number] 08/21/2015 08/21/2015 Eligio Potts MD, PA Follow up after hospital discharge. [id number] 08/21/2015 08/21/2015 Eligio Potts MD, PA Follow up after hospital discharge. [id number] 08/21/2015 08/21/2015 Eligio Potts MD, PA Follow up after hospital discharge. [id number] 08/21/2015 08/21/2015 Eligio Potts MD, PA Follow up after hospital discharge. [id number] 08/21/2015 08/21/2015 Eligio Potts MD, PA Rx for phenytoin [id number] 10/01/2015 10/01/2015 Eligio Potts MD, PA Rx for phenytoin [id number] 10/01/2015 10/01/2015 Eligio Potts MD, PA Rx for phenytoin [id number] 10/01/2015 10/01/2015 Eligio Potts MD, PA Rx for phenytoin [id number] 10/01/2015 10/01/2015 Eligio Potts MD, PA Rx for phenytoin [id number] 10/01/2015 10/01/2015 Eligio Potts MD, PA Rx for phenytoin [id number] 10/01/2015 10/01/2015 Eligio Potts MD, PA Rx for phenytoin [id number] 10/01/2015 10/01/2015 Eligio Potts MD, PA Rx for phenytoin [id number] 10/01/2015 10/01/2015 Eligio Potts MD, PA Rx for phenytoin [id number] 10/01/2015 10/01/2015 Eligio Potts Outpatient [id number] MONICA ALBRIGHT M.D. 10/23/2015 Active [facility] Eligio Potts MD, PA 2 month follow up;Rescheduled..Dr. Albright ill [id number] 10/23/2015 10/23/2015 Eligio Potts MD, PA 2 month follow up;Rescheduled..Dr. Jose Ramon mccarty [id number] 10/23/2015 10/23/2015 Eligio Potts MD, PA 2 month follow up;Rescheduled..Dr. Jose Ramon mccarty [id number] 10/23/2015 10/23/2015 Eligio Potts MD, PA 2 month follow up;Rescheduled..Dr. Jose Ramon mccarty [id number] 10/23/2015 10/23/2015 Eligio Potts MD, PA 2 month follow up;Rescheduled..Dr. Jose Ramon mccarty [id number] 10/23/2015 10/23/2015 Eligio Potts MD, PA 2 month follow up;Rescheduled..Dr. Jose Ramon mccarty [id number] 10/23/2015 10/23/2015 Eligio Potts MD, PA 2 month follow up;Rescheduled..Dr. Jose Ramon mccarty [id number] 10/23/2015 10/23/2015 Eligio Potts MD, PA 2 month follow up;Rescheduled..Dr. Jose Ramon mccarty [id number] 10/23/2015 10/23/2015 Eligio Potts [facility] [id number] Deandre Cornell 02/27/2016 02/27/2016 [facility] Eligio Potts MD, PA Seizures [id number] 03/05/2016 03/05/2016 Eligio Potts MD, PA Seizures [id number] 03/05/2016 03/05/2016 Eligio Potts MD, PA Seizures [id number] 03/05/2016 03/05/2016 Eligio Potts MD, PA Seizures [id number] 03/05/2016 03/05/2016 Eligio Potts MD, PA Seizures [id number] 03/05/2016 03/05/2016 Eligio Potts MD, PA Seizures [id number] 03/05/2016 03/05/2016 Eligio Potts MD, PA Seizures [id number] 03/05/2016 03/05/2016 Eligio Potts MD, PA Returned call [id number] 03/12/2016 03/12/2016 Eligio Potts MD, PA Returned call [id number] 03/12/2016 03/12/2016 Eligio Potts MD, PA Returned call [id number] 03/12/2016 03/12/2016 Eligio Potts MD, PA Returned call [id number] 03/12/2016 03/12/2016 Eligio Potts MD, PA Returned call [id number] 03/12/2016 03/12/2016 Eligio Potts MD, PA Returned call [id number] 03/12/2016 03/12/2016 Eligio Potts MD, PA Unknown [id number] 06/04/2016 06/04/2016 Eligio Potts MD, PA Unknown [id number] 06/04/2016 06/04/2016 Eligio Potts MD, PA Unknown [id number] 06/04/2016 06/04/2016 Eligio Potts MD, PA Unknown [id number] 06/04/2016 06/04/2016 Eligio Potts MD, PA Unknown [id number] 06/04/2016 06/04/2016 Eligio Potts MD, PA Symptoms [id number] 06/11/2016 06/11/2016 Eligio Potts MD, PA Symptoms [id number] 06/11/2016 06/11/2016 Eligio Potts MD, PA Symptoms [id number] 06/11/2016 06/11/2016 Eligio Potts MD, PA Symptoms [id number] 06/11/2016 06/11/2016 [facility] [id number] MONICA ALBRIGHT M.D. 06/30/2016 [facility] Marco Potts MD, PA Medication refill [id number] 06/30/2016 06/30/2016 Eligio Potts MD, PA Medication refill [id number] 06/30/2016 06/30/2016 Eligio Potts MD, PA Medication refill [id number] 06/30/2016 06/30/2016 Eligio Potts MD, PA Rx for Venlafaxine [id number] 07/09/2016 07/09/2016 Eligio Potts MD, PA Rx for Venlafaxine [id number] 07/09/2016 07/09/2016 Eligio Potts MD, PA Unknown [id number] 07/12/2016 07/12/2016 Eligio Potts Outpatient [id number] MONICA ALBRIGHT M.D. 12/28/2016 Active [facility] Outpatient [id number] [facility] 04/25/2017 Active [facility] Outpatient [id number] [facility] 04/25/2017 04/26/2017 [facility] Outpatient [id number] KERRY ALVAREZ 10/11/2017 Active [facility] Phone Message [phone] 12/02/2017 12/04/2017 [facility] Outpatient [id number] ELIGIO POTTS 12/13/2017 Active [facility] Ambulatory Pre-Reg [id number] Eligio Potts 12/13/2017 12/13/2017 [facility] Procedures Procedure Code Date Perfomer Comments Source Breast augmentation [id number] [facility] Creation of MIXER DIAMOND POWDER shunt [id number] [facility] Procedure on brain<sup>1</sup> 887722287 muti brain surgeries x4 [facility] Tonsillectomy [id number] [facility] Breast augmentation [id number] [facility] Creation of MIXER DIAMOND POWDER shunt [id number] [facility] Procedure on brain<sup>1</sup> 779902241 muti brain surgeries x4 [facility] Breast augmentation [id number] [facility] Creation of MIXER DIAMOND POWDER shunt [id number] [facility] Procedure on brain<sup>1</sup> [id number] 1muti brain surgeries x4 [facility]
--- OUTSIDE RECORDS SUMMARY | 2018-07-27 14:16 | XMS REPORT ---
Author Author Dr. Judy Albright [facility] [employer] Address Unknown Phone Unavailable Care Team Providers Care Sugar Sampler Name Role Phone Dr. Judy Albright CP Unavailable Allergies, Adverse Reactions, Alerts Substance Reaction Event Type N.K.D.A. Info Not Available Non Drug Allergy Encounters Encounter Location Date Rx Refill Anatoly Shrestha [place], [place] November 06, 2014 Phenytoin Refill Anatoly Shrestha MD, [place] December 16, 2014 seizures Anatoly Shrestha MD, [place] December 20, 2014 Unknown Anatoly Shrestha MD, [place] December 23, 2014 f/u Anatoly Shrestha MD, [place] July 29, 2014 Allergy to new medication Anatoly Shrestha MD, [place] August 29, 2014 2 month fu Anatoly Shrestha MD, [place] October 24, 2014 Discuss nose bleeds Anatoly Shrestha MD, PA Mar 28, 2015 Ms. Shi status Anatoly Shrestha MD, PA Dec 31, 2014 Side effects Anatoly Shrestha MD, PA Feb 27, 2015 Rx for phenytoin Anatoly Shrestha MD, PA October 01, 2015 2 month follow up;Rescheduled..Dr. Albright ill Anatoly Shrestha MD, PA October 23, 2015 [place] Shrestha MD, PA August 12, 2015 Follow up after hospital discharge. Anatoly Shrestha MD, PA August 21, 2015 Problems Problem Type Condition ICD-9 Code Onset Dates Condition Status Problem Depression F32.9 Active Assessment Epilepsy G40.909 Active Problem Epilepsy G40.909 Active Assessment Depression F32.9 Active Medications Medication Code System Code Instructions Start Date End Date Status Dosage Venlafaxine HCl ER [facility] [address]-83 150MG Orally Once a day Active 1 tablet with food Levetiracetam [facility] [address]-82 500 MG Orally Twice a day Active 2.5 tablets Phenytoin Sodium Extended [facility] [address]-43 100 mg Orally Once every night December 16, 2014 Active 3 capsules Acyclovir [facility] [address]-91 400 MG Orally Three times a day Mar 28, 2015 Active 1 tablet Night Time Sleep Aid [facility] [address]-64 50 mg Orally Once a day Active 1 tablet at bedtime Social History Social History Element Qualifiers Date Reported Highest level of education completed: . 2 years of College October 23, 2015 Tobacco Use: . Are you a: former smoker quit in 2009October 23, 2015 Use of recreational / street drugs? . Answer: No October 23, 2015 Marital Status: . October 23, 2015 Caffeine intake? . Status: Yes, What type: Coffee, 1 - 2 cup(s) a day October 23, 2015 Do you exercise? . Answer: Yes, Type: walking 1 mile 2x a week October 23, 2015 Do you drink alcohol? . 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
--- OUTSIDE RECORDS SUMMARY | 2018-07-27 14:16 | XMS REPORT | Summary of Care ---
Author Author [facility] Organization [facility] Address Unknown Phone Unavailable Encounter BASIL Myles(FIN) [id number] Date(s): 04/25/17 - 04/25/17 [facility] [address] [place] [phone] Discharge Disposition: Home or Self Care Attending Physician: Sandra Jackson Vital Signs Most recent to 1 oldest [Reference Range]: Height 162.56 cm (04/25/17 3:15 PM) Blood Pressure 144/79 mmHg [90-140/60-90 mmHg] *HI* (04/25/17 3:15 PM) Peripheral Pulse 72 bpm Rate [60-100 bpm] (04/25/17 3:15 PM) Weight 58.909 kg (04/25/17 3:15 PM) Body Mass Index 22.29 m2 (04/25/17 3:15 PM) Problem List Condition Effective Dates Status Health Status Informant Acute renal Resolved failure(Confirmed) 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)1, 2 Brain Resolved tumor(Confirmed) Breast Resolved augmentation(Confirm ed) Cervical 06/30/16 Active radiculopathy(Confir med)3, 4, 5, 6 Epilepsy(Confirmed)7 10/23/15 Active , 8 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 With hemorrhagic conversion, s/p resection. Originally documented as Benign neoplasm of brain, unspecified brain region. 2Data migrated from [employer] on 07/04/2016. With hemorrhagic conversion, s/p resection. Originally documented as Benign neoplasm of brain, unspecified brain region. 3Data migrated from [employer] on 07/29/2016. Please see above. Originally documented as Left cervical radiculopathy. 4Data migrated from [employer] on 07/29/2016. Please see above. Originally documented as Right cervical radiculopathy. 5Data migrated from [employer] on 07/04/2016. Please see above. Originally documented as Left cervical radiculopathy. 6Data migrated from [employer] on 07/04/2016. Please see above. Originally documented as Right cervical radiculopathy. 7Data migrated from [employer] on 06/16/15. Well controlled. Treatment with phenytoin and Keppra will be continued. Originally documented as Epilepsy. 8Data migrated from [employer] on 06/16/15. The patient s seizures are well controlled with Keppra and phenytoin (when she takes both medications). Routine blood work, including a phenytoin level, will be ordered. Ms. Shi will deidra nue with her current treatment with Keppra and phenytoin. Originally documented as Epilepsy. 9Data migrated from [employer] on 07/29/2016. Well controlled per Mrs. Shi. Routine blood work, including Keppra and total phenytoin levels, will be drawn. Treatment with the current doses of the same medications will be continued. 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 10Data migrated from [employer] on 07/04/2016. Well controlled per Mrs. Shi. Routine blood work, including Keppra and total phenytoin levels, will be drawn. Treatment with the current doses of the same medications will be continued. 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 11Data migrated from [employer] on 07/29/2016. Please see above. 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 12Data migrated from [employer] on 07/29/2016. The symptoms the patient describes in the history of present illness and findings on the neurological examination are suggestive of either median neuropathy(ies) at the wrists and/or cervical radiculopathies. Ms. Shi declines further evaluation or treatment at this time. Originally documented as Left median nerve neuropathy. 13Data migrated from [employer] on 07/04/2016. Please see above. 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 14Data migrated from [employer] on 07/04/2016. The symptoms the patient describes in the history of present illness and findings on the neurological examination are suggestive of either median neuropathy(ies) at the wrists and/or cervical radiculopathies. Ms. Shi declines further evaluation or darrius Originally documented as Left median nerve neuropathy. 15Data migrated from [employer] on 06/16/15. Well controlled. Treatment with venlafaxine ER will be continued. Originally documented as Depression. 16Data migrated from [employer] on 06/16/15. Stable. Continue treatment with venlafaxine. Originally documented as Depression. 17Data migrated from [employer] on 07/29/2016. Well controlled per the patient. Treatment with venlafaxine will be continued. Originally documented as Recurrent major depressive disorder, in partial remission. 18Data migrated from [employer] on 07/04/2016. Well controlled per the patient. Treatment with venlafaxine will be continued. Originally documented as Recurrent major depressive disorder, in partial remission. 19Post brain tumor Allergies, Adverse Reactions, Alerts Substance Reaction Severity Status NKDA Active Medications Unisom 25 mg, PO, Daily, 0 Refill(s) Start Date: 04/25/17 Status: Ordered Results No data available for this section Immunizations Given and Recorded Vaccine Date Status Refusal Reason influenza virus vaccine, inactivated 04/30/14 Given Procedures Procedure Date Related Diagnosis Body Site Breast augmentation Creation of TIME STUDY OBSERVER shunt Creation of TIME STUDY OBSERVER shunt Procedure on brain1 Tonsillectomy 1muti brain surgeries x4 Social History Social History Type Response Exercise Exercise frequency: 1-2 times/week. Exercise type: Walking. Employment/School Status: Retired. Highest education level: Some college. Smoking Status Former smoker; Type: Cigarettes; Previous treatment: None; Concerns about tobacco use in household: No; Exposure to Tobacco Smoke Unable to obtain; Cigarette Smoking Last 365 Days No; Reg Smoking Cessation Counseling No Assessment and Plan No data available for this section
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
--- OUTSIDE RECORDS SUMMARY | 2018-07-27 14:16 | XMS REPORT ---
Author Author Judy Albright [facility] eClinicalWorks Address Unknown Phone Unavailable Care Team Providers Care Business Management Associate Name Role Phone Judy Albright CP Unavailable Allergies, Adverse Reactions, [...] Anatoly Shrestha MD, [place] October 24, 2014 Problems Problem Type Condition ICD-9 Code Onset Dates Condition Status Problem Depression 311 Active Assessment Epilepsy 345.90 Active Problem Epilepsy 345.90 Active Assessment Depression 311 Active Medications Medication Code System Code Instructions Start Date End Date Status [facility] [address]-46 100 MG Orally Twice a day May 06, 2014 Active 1 tablet Sleep Aid MED[facility] [address]-15 Orally Once a day Active 1 tablet at bedtime as needed Phenytoin Sodium Extended [facility] [address]-83 100 MG Orally once every night December 16, 2014 Active 3 capsules Venlafaxine HCl ER [facility] [address]-83 150MG Orally Once a day Active 1 tablet with food Levetiracetam [facility] [address]-15 1000 MG Orally every 12 hrs Active 1 tablet Social History Social History Element Qualifiers Date Reported Highest level of education completed: . 2 years of College December 20, 2014 Tobacco Use: . Are you a: former smoker quit in 2009December 20, 2014 Use of recreational / street drugs? . Answer: No December 20, 2014 Marital Status: . December 20, 2014 Caffeine intake? . Status: Yes, What type: Coffee, 1 - 2 cup(s) a day December 20, 2014 Do you exercise? . Answer: Yes, Type: walking 1 mile 2x a week December 20, 2014 Do you drink alcohol? . 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 20, 2014 Vital Signs Date/Time: December 20, 2014 Weight 134.8 lbs Height 65 in Cardiac Monitoring Heart Rate 70 /min Blood Pressure Diastolic 80 mm Hg Blood Pressure Systolic 159 mm Hg Results Phenytoin Level Total Phenytoin Total(-10.0-20.0 ug/mL) 9.0 Auto Diff Basophils(-0.0-1.0 %) 1.0 Eosinophils(-0.0-4.0 %) 2.2 Lymphocytes #(-1.0-5.5 K/CMM) 1.3 Segs-Bands #(-1.5-8.1 K/CMM) 3.3 Segs(-45.0-75.0 %) 62.5 Lymphocytes(-20.0-40.0 %) 25.8 Monocytes(-2.0-12.0 %) 8.5 Monocytes #(-0.0-0.8 K/CMM) 0.4 Eosinophils #(-0.0-0.5 K/CMM) 0.1 CMP (Comprehensive Metabolic Panel) ALT(-0-65 U/L) 43 Calcium Lvl(-8.5-10.5 mg/dL) 9.1 Alk Phos(-39-136 U/L) 97 AST(-0-37 U/L) 21 B/C Ratio(-6-25 ) 10 BUN(-7-22 mg/dL) 11 eGFR(- mL/min/1.73m2) 54 Creatinine Lvl(-0.5-1.4 mg/dL) 1.1 Glucose Lvl(-70-99 mg/dL) 82 AGAP(-10.0-20.0 mEq/L) 7.9 Albumin Lvl(-3.5-5.0 g/dL) 4.3 Total Protein(-6.4-8.4 g/dL) 7.1 A/G Ratio(-0.7-1.6 ) 1.5 Globulin(-2.0-4.0 g/dL) 2.8 Sodium Lvl(-135-145 mEq/L) 142 Potassium Lvl(-3.5-5.1 mEq/L) 3.9 Chloride Lvl(-95-109 mEq/L) 108 CO2(-24-32 mEq/L) 30 CBC w/ Auto Diff and Platelet MCHC(-32.0-36.0 g/dL) 32.3 MCH(-27.0-31.0 pg) 31.8 Platelet(-133-450 K/CMM) 231 MPV(-7.4-10.4 fl) 9.8 RDW(-11.5-14.5 %) 14.7 Hct(-36.0-48.0 %) 41.8 MCV(-80.0-98.0 fl) 98.6 RBC(-4.20-5.40 M/CMM) 4.24 Hgb(-12.0-16.0 g/dL) 13.5 WBC(-3.7-10.4 K/CMM) 5.2 Summary Purpose eClinicalWorks Submission
--- OUTSIDE RECORDS SUMMARY | 2018-07-27 14:16 | XMS REPORT ---
Author Author Dr. Judy Albright [facility] eClinicalWorks Address Unknown Phone Unavailable Care Team Providers Care Capital Project Engineer Name Role Phone Dr. Judy Albright CP Unavailable Encounters Encounter Location Date Rx Refill Anatoly Shrestha [place], [place] November 06, 2014 Phenytoin Refill Anatoly Shrestha [place], [place] December 16, 2014 seizures Anatoly Shrestha MD, [place] December 20, 2014 Unknown Anatoly Shrestha MD [place] December 23, 2014 f/u Anatoly Shrestha [...] Anatoly Shrestha MD, [place] October 01, 2015 Keppra Anatoly Shrestha MD, [place] August 12, 2015 Follow up after hospital discharge. Anatoly Shrestha MD, PA August 21, 2015 Problems Problem Type Condition ICD-9 Code Onset Dates Condition Status Problem Depression F32.9 Active Problem Epilepsy G40.909 Active Medications Medication Code System Code Instructions Start Date End Date Status Dosage Venlafaxine HCl ER [facility] [address]-23 150MG Orally Once a day Active 1 tablet with food Levetiracetam [facility] [address]-89 250 MG Orally Twice a day Active 1 tablet Acyclovir [facility] [address]-43 400 MG Orally Three times a day Mar 28, 2015 Active 1 tablet Phenytoin Sodium Extended [facility] [address]-67 100 mg Orally Once every night December 16, 2014 Active 3 capsules Levetiracetam [facility] [address]-13 1000 mg Orally Twice a day Active 1 tablet Night Time Sleep Aid [facility] [address]-98 50 mg Orally Once a day Active 1 tablet at bedtime Social History Social History Element Qualifiers Date Reported Highest level of education completed: . 2 years of College August 21, 2015 Tobacco Use: . Are you a: former smoker quit in 2009August 21, 2015 Use of recreational / street drugs? . Answer: No August 21, 2015 Marital Status: . August 21, 2015 Caffeine intake? . Status: Yes, What type: Coffee, 1 - 2 cup(s) a day August 21, 2015 Do you exercise? . Answer: Yes, Type: walking 1 mile 2x a week August 21, 2015 Do you drink alcohol? . 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
--- OUTSIDE RECORDS SUMMARY | 2018-07-27 14:16 | XMS REPORT | Summary of Care ---
Author Organization Unknown Address Unknown Phone Unavailable Encounter [facility](KENDRA) [id number] Date(s): 03/08/14 - 03/09/[address] Discharge Disposition: Home Physician Attending: Luther Brito MD Physician Admitting: Luther Brito MD Reason for Visit SEIZURE Vital Signs 1 2 3 Most recent to oldest [Reference Range]: 162.56 cm (03/08/14 7:56 PM) 162.56 cm (03/08/14 6:43 PM) 175.26 cm (03/08/14 2:26 PM) Height 98.2 DegF (03/09/14 11:30 AM) 98.4 DegF (03/09/14 8:00 AM) 98 DegF (03/09/14 4:00 AM) Temperature Oral [96.4-99.1 DegF] 132 mmHg (03/09/14 11:30 AM) 140 mmHg (03/09/14 8:00 AM) 164 mmHg *HI* (03/09/14 4:00 AM) Systolic Blood Pressure [90-140 mmHg] 87 mmHg (03/09/14 11:30 AM) 86 mmHg (03/09/14 8:00 AM) 75 mmHg (03/09/14 4:00 AM) Diastolic Blood Pressure [60-90 mmHg] 15 BRMIN (03/09/14 11:30 AM) 14 BRMIN (03/09/14 8:00 AM) 13 BRMIN *LOW* (03/09/14 4:00 AM) Respiratory Rate [14-20 BRMIN] 74 bpm (03/08/14 6:19 PM) 79 bpm (03/08/14 2:26 PM) 96 bpm (03/08/14 2:13 PM) Peripheral Pulse Rate [60-100 bpm] 60.4 kg (03/08/14 7:56 PM) 60.006 kg (03/08/14 6:43 PM) 78.182 kg (03/08/14 2:26 PM) Weight 22.86 m2 (03/08/14 7:56 PM) 22.71 m2 (03/08/14 6:43 PM) 25.45 m2 (03/08/14 2:26 PM) Body Mass Index Problem List Condition Effective Dates Status Health Status Informant Acute renal Resolved failure(Confirmed) Brain Resolved tumor(Confirmed) Breast Resolved augmentation(Confirm ed) Parkinsons(Confirmed Resolved ) Peripheral vision Resolved loss(Confirmed) Seizure(Confirmed)1 Resolved SOLAR ENERGY SYSTEM INSTALLER shunt(Confirmed) Resolved 1Post brain tumor Allergies, Adverse Reactions, Alerts Substance Reaction Severity Status NKDA Active Medications BD Normal Saline Flush 5 mL, Route: IV, Drug Form: INJ, PRN, PRN Line Flush, Start date: 03/09/14 3:02: 00, Duration: 30 day, Stop date: 04/08/14 2:01:00 Notes: (Same as: BD Posiflush) Start Date: 03/09/14 Stop Date: 03/09/14 Status: Discontinued enoxaparin 40 mg, 0.4 mL, Route: SUB-Q, Drug form: INJ, [id number], Dosing Weight 60.4, kg, S tart date: 03/09/14 13:00:00, Duration: 30 day, Stop date: 04/07/14 13:00:00 Notes: (Same as: Lovenox) Start Date: 03/09/14 Stop Date: 03/09/14 Status: Discontinued FLUoxetine =1 cap, PO, Daily, 0 Refill(s) Start Date: 03/08/14 Stop Date: 03/08/14 Status: Discontinued Keppra 1,000 mg, 2 tab, Route: PO, Drug form: TAB, Q12H, Dosing Weight 60.4, kg, Start date: 03/09/14 21:00:00, Duration: 30 day, Stop date: 04/08/14 9:00:00 Notes: (Same as:Keppra) Start Date: 03/09/14 Stop Date: 03/09/14 Status: Canceled Keppra 1,000 mg, 100 mL, Route: IV, Drug form: SOLN, [id number], Dosing Weight 78.182, kg, Priority: NOW, Start date: 03/08/14 15:32:00, Duration: 30 day, Stop date: 02/10 3:32:00 Start Date: 03/08/14 Stop Date: 03/09/14 Status: Discontinued levETIRAcetam 500 mg oral tablet 1,000 mg=2 tab, PO, Q12H, # 2 tab, 1 Refill(s) Start Date: 03/09/14 Status: Ordered LORazepam 1 mg, 0.5 mL, Route: IVP, Drug form: INJ, Q15Min, Dosing Weight 60.006, kg, PRN Seizure, Start date: 03/08/14 18:45:00, Duration: 30 day, Stop date: 04/07/14 17 :44:00 Notes: (Same as: Ativan) Start Date: 03/08/14 Stop Date: 03/09/14 Status: Discontinued Saline Flush 0.9% 10 mL, Route: IVP, Drug Form: INJ, Dosing Weight 78.182, kg, PRN, PRN Line Flush , Start date: 03/08/14 14:31:00, Duration: 30 day, Stop date: 04/07/14 13:30:00 Notes: (Same as: BD Posiflush) Start Date: 03/08/14 Stop Date: 03/09/14 Status: Discontinued Saline Flush 0.9% 10 mL, Route: IVP, Drug Form: INJ, Dosing Weight 78.182, kg, PRN, PRN Line Flush , Start date: 03/08/14 14:30:00, Duration: 30 day, Stop date: 04/07/14 13:29:00 Notes: (Same as: BD Posiflush) Start Date: 03/08/14 Stop Date: 03/09/14 Status: Discontinued Sodium Chloride 0.9% IV 25 mL, Route: IV, Start date: 03/09/14 3:02:00, Duration: 30 day, Stop date: 03/12 2:01:00, PRN Line Flush Start Date: 03/09/14 Stop Date: 03/09/14 Status: Discontinued venlafaxine 150 mg oral tablet, extended release 150 mg=1 tab, PO, Daily, # 30 tab, 0 Refill(s) Start Date: 03/08/14 Status: Ordered Results ELECTROLYTES Most recent to 1 oldest [Reference Range]: Sodium Lvl [135-145 139 mEq/L mEq/L] (03/08/14 2:30 PM) Potassium Lvl 3.8 mEq/L [3.5-5.1 mEq/L] (03/08/14 2:30 PM) Chloride Lvl [95-109 104 mEq/L mEq/L] (03/08/14 2:30 PM) CO2 [24-32 mEq/L] 24 mEq/L (03/08/14 2:30 PM) AGAP [10.0-20.0 14.8 mEq/L mEq/L] (03/08/14 2:30 PM) CHEM PANEL Most recent to 1 oldest [Reference Range]: Creatinine Lvl 1.3 mg/dL [0.5-1.4 mg/dL] (03/08/14 2:30 PM) eGFR 44 mL/min/1.73m2 1 *NA* (03/08/14 2:30 PM) BUN [7-22 mg/dL] 21 mg/dL (03/08/14 2:30 PM) B/C Ratio [6-25] 16 (03/08/14 2:30 PM) Glucose Lvl [70-99 90 mg/dL 2 mg/dL] (03/08/14 2:30 PM) Total Protein 7.7 g/dL [6.4-8.4 g/dL] (03/08/14 2:30 PM) Albumin Lvl [3.5-5.0 4.0 g/dL g/dL] (03/08/14 2:30 PM) Globulin [2.0-4.0 3.7 g/dL g/dL] (03/08/14 2:30 PM) A/G Ratio [0.7-1.6] 1.1 (03/08/14 2:30 PM) Calcium Lvl 8.8 mg/dL [8.5-10.5 mg/dL] (03/08/14 2:30 PM) ALT [0-65 unit/L] 14 unit/L (03/08/14 2:30 PM) AST [0-37 unit/L] 13 unit/L (03/08/14 2:30 PM) Alk Phos [39-136 92 unit/L unit/L] (03/08/14 2:30 PM) Bili Total [0.2-1.3 0.4 mg/dL mg/dL] (03/08/14 2:30 PM) 1Result Comment: The eGFR is calculated [...] be mul tiplied by the estimated BMI. 2Interpretive Data: Adult reference range values reflect the clinical guidelines of the [employer]. CARDIAC ENZYMES Most recent to 1 oldest [Reference Range]: Total CK [12-191 63 unit/L unit/L] (03/08/14 2:30 PM) CK MB [0.5-3.6 1.0 ng/mL ng/mL] (03/08/14 2:30 PM) CK MB Index 1.6 [0.0-2.5] (03/08/14 2:30 PM) Troponin-I 0.02 ng/mL [0.00-0.40 ng/mL] (03/08/14 2:30 PM) HEMATOLOGY Most recent to 1 oldest [Reference Range]: WBC [3.7-10.4 K/CMM] 10.3 K/CMM (03/08/14 2:30 PM) RBC [4.20-5.40 4.21 M/CMM M/CMM] (03/08/14 2:30 PM) Hgb [12.0-16.0 g/dL] 13.3 g/dL (03/08/14 2:30 PM) Hct [36.0-48.0 %] 39.1 % (03/08/14 2:30 PM) MCV [80.0-98.0 fL] 92.8 fL (03/08/14 2:30 PM) MCH [27.0-31.0 pg] 31.6 pg *HI* (03/08/14 2:30 PM) MCHC [32.0-36.0 34.1 g/dL g/dL] (03/08/14 2:30 PM) RDW [11.5-14.5 %] 14.1 % (03/08/14 2:30 PM) Platelet [133-450 331 K/CMM K/CMM] (03/08/14 2:30 PM) MPV [7.4-10.4 fL] 8.4 fL (03/08/14 2:30 PM) Segs [45.0-75.0 %] 73.4 % (03/08/14 2:30 PM) Lymphocytes 19.8 % [20.0-40.0 %] *LOW* (03/08/14 2:30 PM) Monocytes [2.0-12.0 5.1 % %] (03/08/14 2:30 PM) Eosinophils [0.0-4.0 1.2 % %] (03/08/14 2:30 PM) Basophils [0.0-1.0 0.5 % %] (03/08/14 2:30 PM) Segs-Bands # 7.6 K/CMM [1.5-8.1 K/CMM] (03/08/14 2:30 PM) Lymphocytes # 2.0 K/CMM [1.0-5.5 K/CMM] (03/08/14 2:30 PM) Monocytes # [0.0-0.8 0.5 K/CMM K/CMM] (03/08/14 2:30 PM) Eosinophils # 0.1 K/CMM [0.0-0.5 K/CMM] (03/08/14 2:30 PM) Basophils # [0.0-0.2 0.1 K/CMM K/CMM] (03/08/14 2:30 PM) PT [12.0-14.7 13.3 seconds seconds] (03/08/14 2:30 PM) INR [0.85-1.17] 1.01 3 (03/08/14 2:30 PM) PTT [22.9-35.8 31.6 seconds 4 seconds] (03/08/14 2:30 PM) 3Interpretive Data: RECOMMENDED RANGES FOR PROTIME INR: 2.0-3.0 for most medical and surgical thromboembolic states. 2.5-3.5 for artificial heart valves and recurrent embolism. INR SHOULD BE USED ONLY FOR PATIENTS ON STABLE ANTICOAGULANT THERAPY. 4Interpretive Data: Heparin Therapeutic Range: 57 - 92 Seconds Medications Administered During Your Visit No data available for this section Immunizations No data available for this section Procedures Procedure Type Body Site Date of Procedure Related Diagnosis Breast augmentation Creation of SOLAR ENERGY SYSTEM INSTALLER shunt Social History Social History Type Response Smoking Status Former smoker, Type: Cigarettes, Previous treatment: None, Concerns about tobacco use in household: No, Exposure to Tobacco Smoke Unable to obtain, Cigarette Smoking Last 365 Days No, Reg Smoking Cessation Counseling No Assessment and Plan Extracted from: Title: Neurology Progress Note Author: Judy Albright MD Date: 03/09/14 Name: Johanna Shi Date: 03/09/2014 S: Ms. Chahal is awake, sitting up in bed eating breakfast. She has no concerns this morning. She is eager to be discharged. ROS: General: No fatigue, fever, chills. GI: No N/V/D. Neuro: No headaches, altered mentation, positive visual field cut (chronic). MSK: No pain in the extremities or back. Medications: Scheduled Meds (1): 03/08/14 levETIRAcetam (Keppra) 1,000 mg IV [id number] 400 ml/hr Unscheduled Meds: None PRN Meds (5): 03/08/14 LORazepam 1 mg IVP Q15Min 03/09/14 Sodium Chloride 0.9% IV 25 mL IV PRN 03/08/14 sodium chloride (Saline Flush 0.9%) 10 mL IVP PRN 03/08/14 sodium chloride (Saline Flush 0.9%) 10 mL IVP PRN 03/09/14 sodium chloride (BD Normal Saline Flush) 5 mL IV PRN One Time Meds: None Continuous Infusions: None O: VitalsTmp(F)Tmp(C)[id number] 03/09 08:0098.436.76xfpo483/[id number]------ 03/09 04:482263.73mlvp827/[id number]------ 03/09 00:2698.236.28hxfw760/[id number]------ 03/08 20:1598.136.35alzp220/[id number]------ 03/08 19:55 [id number]--------- 24 Hr Tmax: 98.4F (36.89c) at 03/09 08:0024 Hr Tmin: 98F (36.67c) at 03/09 04:00 36 Hr Tmax: 98.4F (36.89c) at 03/09 08:0036 Hr Tmin: 98F (36.67c) at 03/09 04:00 General: The patient is awake and sitting up in bed. No acute distress. HEENT: Skull defect from prior craniotomy. PERRLA. EOMI. Moist mucous membranes. Neck: Supple. CV: S1, S2, RRR. No M/R/G. Resp: CTAB. GI: Soft, NT, ND. Normoactive bowel sounds. Ext: Skin is warm and dry. No C/C/E. Neuro: The patient is awake, alert and oriented to person, place, date, day of the week, and situation. Pupils are 4 mm reactive to 2 mm bilaterally. Dense left visual field cut. EOMI. Face is symmetric. Facial sensation to light touch is intact. Acuity to finger rub is intact bilaterally. The soft palate elevates symmetrically. The tongue protrudes midline. Strength is 5/5 in all muscles examined. Deep tendon reflexes are brisk in the left arm and leg (leg moreso than arm). Sensation is intact to light touch throughout. Diagnostic Studies: 03/08/2014 14:30 Sodium Lvl 139 (Ref. Range 135 - 145) Potassium Lvl 3.8 (Ref. Range 3.5 - 5.1) Chloride Lvl 104 (Ref. Range 95 - 109) CO2 24 (Ref. Range 24 - 32) AGAP 14.8 (Ref. Range 10.0 - 20.0) Creatinine Lvl 1.3 (Ref. Range 0.5 - 1.4) eGFR 44 * BUN 21 (Ref. Range 7 - 22) B/C Ratio 16 (Ref. Range 6 - 25) Glucose Lvl 90 * (Ref. Range 70 - 99) Total Protein 7.7 (Ref. Range 6.4 - 8.4) Albumin Lvl 4.0 (Ref. Range 3.5 - 5.0) Globulin 3.7 (Ref. Range 2.0 - 4.0) A/G Ratio 1.1 (Ref. Range 0.7 - 1.6) Calcium Lvl 8.8 (Ref. Range 8.5 - 10.5) ALT 14 (Ref. Range 0 - 65) AST 13 (Ref. Range 0 - 37) Alk Phos 92 (Ref. Range 39 - 136) Bili Total 0.4 (Ref. Range 0.2 - 1.3) Total CK 63 (Ref. Range 12 - 191) CK MB 1.0 (Ref. Range 0.5 - 3.6) CK MB Index 1.6 (Ref. Range 0.0 - 2.5) Troponin-I 0.02 (Ref. Range 0.00 - 0.40) WBC 10.3 (Ref. Range 3.7 - 10.4) RBC 4.21 (Ref. Range 4.20 - 5.40) Hgb 13.3 (Ref. Range 12.0 - 16.0) Hct 39.1 (Ref. Range 36.0 - 48.0) MCV 92.8 (Ref. Range 80.0 - 98.0) MCH 31.6 H (Ref. Range 27.0 - 31.0) MCHC 34.1 (Ref. Range 32.0 - 36.0) RDW 14.1 (Ref. Range 11.5 - 14.5) Platelet 331 (Ref. Range 133 - 450) MPV 8.4 (Ref. Range 7.4 - 10.4) Segs 73.4 (Ref. Range 45.0 - 75.0) Lymphocytes 19.8 L (Ref. Range 20.0 - 40.0) Monocytes 5.1 (Ref. Range 2.0 - 12.0) Eosinophils 1.2 (Ref. Range 0.0 - 4.0) Basophils 0.5 (Ref. Range 0.0 - 1.0) Segs-Bands # 7.6 (Ref. Range 1.5 - 8.1) Lymphocytes # 2.0 (Ref. Range 1.0 - 5.5) Monocytes # 0.5 (Ref. Range 0.0 - 0.8) Eosinophils # 0.1 (Ref. Range 0.0 - 0.5) Basophils # 0.1 (Ref. Range 0.0 - 0.2) PT 13.3 (Ref. Range 12.0 - 14.7) INR 1.01 * (Ref. Range 0.85 - 1.17) PTT 31.6 * (Ref. Range 22.9 - 35.8) CT Brain without Contrast 03/08/2014: 1. No acute intracranial hemorrhage, mass or acute ischemia seen. 2. Mild microvascular ischemia. 3. Postsurgical changes with ventricular catheter as above. No hydrocephalus. 4. Right parietal encephalomalacia and gliosis. EEG: Study completed, report pending. A/P: Ms. Shi is a 64 y.o. 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 In the EC, the patient was given Ativan to break the seizure(s) and then loaded with Keppra. A CT of the brain without contrast showed no acute pathology. An EEG was performed and the report is pending. Ms. Shi has returned to baseline and is eager to return home. In discussing her prior treatment, Ms. Shi informed she had taken Keppra before, but it was stopped when her hair fell out. Lamictal was ineffective at controlling her seizures and she went in to renal failure while on a combination of Lamictal and Trileptal. She has not taken antiepileptic medications for several months. Ms. Shi and I discussed other antiepileptic medications, especially their potential adverse effects. Ms. Shi has chosen to remain on Keppra for the time being. She will follow up with me as an outpatient. I discussed seizure precautions with Ms. Shi. I advised her to sleep 7-8 hours/night, avoid substances like alcohol, stimulants, and certain medications (Benadryl, Tramadol) that lower the seizure threshold, and to be cautious when participating in activities which may result in serious injury if she should have a seizure. I informed of the [place] state law forbidding a patient from morro pazzeynep unless seizure free for 3 months on medication and adivsed her to contact DPS. From a neurological standpoint, Ms. Shi may be discharged to home. Judy Albright MD [id number] Neurology Extracted from: Title: Clinical Document Author: Luther Brito MD Date: 03/08/14 CC: seizure HPI 64 year old white female with previous SOLAR ENERGY SYSTEM INSTALLER shunt for removal of meningioma, depression and seizure disorder, who just moved here from [place] and self discontiued her antiseizure medications, that came to hospital with drifting twards the left and arm weakness in the left and confusion. Originally they thought she may have had a stroke, however, she had a siezure which started as left hand tremors and left sided tremor. She is currently post ictal and lethargic but is orirnted to self, place, and date. She in unable to give a clear history due to her lethargy. Her relative is the source, and Dr. Radford the ED physician. She is moving all her extremities now. REVIEW OF SYSTEMS 14 point review of systems otherwise negative, except as recorded above. PAST HISTORY Seizures. (Brain Tumor (meningioma in 2010) and SOLAR ENERGY SYSTEM INSTALLER Shunt Current medications: anti-depressant). No history of hypertension or diabetes mellitus. SOCIAL HISTORY Nonsmoker. No alcohol use or drug use. Is a local resident. FAMILY HISTORY No seizures PHYSICAL EXAM VitalsTmp(F)Tmp(C)FtdqqETNNUJailpDKQmE5FCD0KSIK3 03/08 14:2698.236.28lcda457/86---[id number]------ 03/08 14:13 [id number]------ Appearance: letharigic Eyes: Pupils equal, round and reactive to light. ENT: Normal ENT inspection. Neck: Normal inspection. CVS: Normal heart rate and rhythm. Heart sounds normal. Respiratory: No respiratory distress. Breath sounds normal. Skin: Normal skin color. Extremities: Extremities exhibit normal ROM. No lower extremity edema. Neuro: Alert. Oriented X 3. Cranial nerves normal (as tested). No cerebellar findings. Albel to move all extremities. No sensory deficit. LABS, X-RAYS, AND EKG EKG: EKG time (14:38 Mar 08 2014). Normal sinus rhythm. Rate: 79. 10/10 1430 Sodium Mqj376 Potassium Lvl3.8 Chloride Jmn656 CO224 AGAP14.8 Glucose Lvl90 Creatinine Lvl1.3 BUN21 B/C Ratio16 Total Protein7.7 Albumin Lvl4.0 Globulin3.7 A/G Ratio1.1 Calcium Lvl8.8 ALT14 AST13 Bili Total0.4 Alk Phos92 eGFR44 Total CK63 CK MB1.0 CK MB Index1.6 Troponin-I0.02 WBC10.3 RBC4.21 Hgb13.3 Hct39.1 MCV92.8 MCH31.6 H MCHC34.1 RDW14.1 Yspkhrwk940 MPV8.4 Segs73.4 Monocytes5.1 Cagfordldhq84.8 L Eosinophils1.2 Basophils0.5 Segs-Bands #7.6 Lymphocytes #2.0 Monocytes #0.5 Eosinophils #0.1 Basophils #0.1 PT13.3 INR1.01 PTT31.6 Focal neurological deficit Radiology Report HISTORY: Focal neurologic deficit TECHNIQUE: Single portable view of the chest. COMPARISON: None FINDINGS: Heart size and central vasculature are within normal limits. There is no effusion or focal pneumonia. No pneumothorax. No acute osseous pathology. Note is made of a right-sided central venous catheter with its tip terminating in the SVC. IMPRESSION: No acute cardiopulmonary process. Weakness Radiology Report CT BRAIN WITHOUT CONTRAST COMPARISON: No prior exam. COMMENTS: Coronal and sagittal multiplanar reformatted images are also submitted for interpretation. The DLP is 767 mGy - cm. No intracranial hemorrhage, ventriculomegaly, or midline shift is seen. Beam hardening artifacts obscure portions of the exam. Mild supratentorial white matter low attenuation foci are seen, most likely due to microvascular disease. Mild cerebral atrophy is seen. Right posterior parasagittal and temporal craniotomy changes are identified. Right temporal approach ventricular catheter is seen traversing the right temporal and the tip partially residing in the right suprasellar cyst. There is right parietal encephalomalacia and gliosis. No midline shift is identified. The calvarium otherwise appears intact. Atherosclerotic calcifications are seen in carotid arteries. IMPRESSION: 1. No acute intracranial hemorrhage, mass or acute ischemia seen. 2. Mild microvascular ischemia. 3. Postsurgical changes with ventricular catheter as above. No hydrocephalus. 4. Right parietal encephalomalacia and gliosis. 5. If acute ischemia is suspected, follow-up cranial MRI or CT may be considered, with MRI being the more sensitive modality (if the patient is MRI compatible). ASSESMENT 1. Focal partial complex seizures 2. Encephalomalacia 3. AMS- post ictal PLAN Will hospitalize and load with gary. Will await recomendations from neurology. Futhrer manegement to come as clinical rotation dictates.
--- OUTSIDE RECORDS SUMMARY | 2018-07-27 14:16 | XMS REPORT ---
Author Author Dr. Judy Albright Organization [employer] Address Unknown Phone Unavailable Care Team Providers Care Child Development Consultant Name Role Phone Dr. Judy Albright CP Unavailable Encounters Encounter Location Date Rx [facility]ill [facility] November 06, 2014 Phenytoin [facility] December 16, 2014 seizures [facility] December 20, 2014 Unknown [facility] December 23, 2014 f/u [facility] July 29, 2014 Keppra [facility] August 12, 2015 Allergy to new medication [facility] August 29, 2014 2 month fu [facility] October 24, 2014 Discuss nose bleeds [facility] Mar 28, 2015 Ms. Shi status [facility] Dec 31, 2014 Side effects [facility] Feb 27, 2015 Problems Problem Type Condition ICD-9 Code Onset Dates Condition Status Problem Depression F32.9 Active Problem Epilepsy G40.909 Active Medications Medication Code System Code Instructions Start Date End Date Status Dosage Levetiracetam [facility] [address]-38 1000 MG Orally Twice a day Active 1 tablet Social History Social History Element Qualifiers Date Reported Highest level of education completed: . 2 years of College Mar 28, 2015 Tobacco Use: . Are you a: former smoker quit in 2009Mar 28, 2015 Use of recreational / street drugs? . Answer: No Mar 28, 2015 Marital Status: . Mar 28, 2015 Caffeine intake? . Status: Yes, What type: Coffee, 1 - 2 cup(s) a day Mar 28, 2015 Do you exercise? . Answer: Yes, Type: walking 1 mile 2x a week Mar 28, 2015 Do you drink alcohol? . Status: No Mar 28, 2015 Occupation: . Retired [employer] Mar 28, 2015 Summary Purpose [employer] Submission
--- OUTSIDE RECORDS SUMMARY | 2018-07-27 14:16 | XMS REPORT | Summary of Care ---
Author Author LAVONNE Neurology [facility] Organization [facility] Address Unknown Phone Unavailable Encounter BASIL Myles(KENDRA) [id number] Date(s): 12/02/17 - 12/03/17 [facility] [address] [place] [phone] Vital Signs No data available for this section Problem List Condition Effective Dates Status Health [...] 18 Seizure(Confirmed)19 Resolved Grand mal Resolved seizure(Confirmed) JOB DEVELOPMENT SPECIALIST shunt(Confirmed) Resolved 1Data migrated from Stand In on 07/29/2016. With hemorrhagic conversion, s/p resection. Originally documented as Benign neoplasm of brain, unspecified brain region. 2Data migrated from Stand In on 07/04/2016. With hemorrhagic conversion, s/p resection. Originally documented as Benign neoplasm of brain, unspecified brain region. 3Data migrated from Stand In on 07/29/2016. Please see above. Originally documented as Left cervical radiculopathy. 4Data migrated from Stand In on 07/29/2016. Please see above. Originally documented as Right cervical radiculopathy. 5Data migrated from Stand In on 07/04/2016. Please see above. Originally documented as Left cervical radiculopathy. 6Data migrated from Stand In on 07/04/2016. Please see above. Originally documented as Right cervical radiculopathy. 7Data migrated from Stand In on 06/16/15. Well controlled. Treatment with phenytoin and Keppra will be continued. Originally documented as Epilepsy. 8Data migrated from Stand In on 06/16/15. The patient s seizures are well controlled with Keppra and phenytoin (when she takes both medications). Routine blood work, including a phenytoin level, will be ordered. Ms. Shi will deidra nue with her current treatment with Keppra and phenytoin. Originally documented as Epilepsy. 9Data migrated from Stand In on 07/29/2016. Well controlled per Mrs. Shi. Routine blood work, including Keppra and total phenytoin levels, will be drawn. Treatment with the current doses of the same medications will be continued. 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 10Data migrated from Stand In on 07/04/2016. Well controlled per Mrs. Shi. Routine blood work, including Keppra and total phenytoin levels, will be drawn. Treatment with the current doses of the same medications will be continued. 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 11Data migrated from Stand In on 07/29/2016. Please see above. 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 12Data migrated from Stand In on 07/29/2016. The symptoms the patient describes in the history of present illness and findings on the neurological examination are suggestive of either median neuropathy(ies) at the wrists and/or cervical radiculopathies. Ms. Shi declines further evaluation or treatment at this time. Originally documented as Left median nerve neuropathy. 13Data migrated from Stand In on 07/04/2016. Please see above. 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 14Data migrated from Stand In on 07/04/2016. The symptoms the patient describes in the history of present illness and findings on the neurological examination are suggestive of either median neuropathy(ies) at the wrists and/or cervical radiculopathies. Ms. Shi declines further evaluation or darrius Originally documented as Left median nerve neuropathy. 15Data migrated from Stand In on 06/16/15. Well controlled. Treatment with venlafaxine ER will be continued. Originally documented as Depression. 16Data migrated from Stand In on 06/16/15. Stable. Continue treatment with venlafaxine. Originally documented as Depression. 17Data migrated from Stand In on 07/29/2016. Well controlled per the patient. Treatment with venlafaxine will be continued. Originally documented as Recurrent major depressive disorder, in partial remission. 18Data migrated from Stand In on 07/04/2016. Well controlled per the patient. Treatment with venlafaxine will be continued. Originally documented as Recurrent major depressive disorder, in partial remission. 19Post brain tumor Allergies, Adverse Reactions, Alerts Substance Reaction Severity Status NKDA Active Medications phenytoin 100 mg oral capsule, extended release See Instructions, TAKE 3 CAPSULES BY MOUTH EVERY NIGHT FOR 30 DAYS, # 90 tab, 0 Refill(s), Pharmacy: [facility] [id number] Start Date: 12/02/17 Status: Ordered Results No data available for this section Immunizations Given and Recorded Vaccine Date Status Refusal Reason influenza virus vaccine, inactivated 04/30/14 Given Procedures Procedure Date Related Diagnosis Body Site Status Breast augmentation Completed Creation of JOB DEVELOPMENT SPECIALIST shunt Completed Creation of JOB DEVELOPMENT SPECIALIST shunt Completed Procedure on brain1 Completed Tonsillectomy Completed 1muti brain surgeries x4 Social History Social History Type Response Exercise Exercise frequency: 1-2 times/week. Exercise type: Walking. Employment/School Status: Retired. Highest education level: Some college. Smoking Status Former smoker; Type: Cigarettes; Previous treatment: None; Concerns about tobacco use in household: No; Exposure to Tobacco Smoke Unable to obtain; Cigarette Smoking Last 365 Days No; Reg Smoking Cessation Counseling No entered on: 09/22/17 Assessment and Plan No data available for this section
--- OUTSIDE RECORDS SUMMARY | 2018-07-27 14:16 | XMS REPORT | Summary of Care ---
Author Author LAVONNE Neurology 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 With hemorrhagic conversion, s/p resection. Originally documented as Benign neoplasm of brain, unspecified brain region. 2Data migrated from [facility] on 07/04/2016. With hemorrhagic conversion, s/p resection. Originally documented as Benign neoplasm of brain, unspecified brain region. 3Data migrated from [facility] on 07/29/2016. Please see above. Originally documented as Left cervical radiculopathy. 4Data migrated from [facility] on 07/29/2016. Please see above. Originally documented as Right cervical radiculopathy. 5Data migrated from [facility] on 07/04/2016. Please see above. Originally documented as Left cervical radiculopathy. 6Data migrated from [facility] on 07/04/2016. Please see above. Originally documented as Right cervical radiculopathy. 7Data migrated from [facility] on 06/16/15. Well controlled. Treatment with phenytoin and Keppra will be continued. Originally documented as Epilepsy. 8Data migrated from [facility] on 06/16/15. The patient s seizures are well controlled with Keppra and phenytoin (when she takes both medications). Routine blood work, including a phenytoin level, will be ordered. Ms. Shi will deidra nue with her current treatment with Keppra and phenytoin. Originally documented as Epilepsy. 9Data migrated from [facility] on 07/29/2016. Well controlled per Mrs. Shi. Routine blood work, including Keppra and total phenytoin levels, will be drawn. Treatment with the current doses of the same medications will be continued. 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 10Data migrated from [employer] on 07/04/2016. Well controlled per Mrs. Shi. Routine blood work, including Keppra and total phenytoin levels, will be drawn. Treatment with the current doses of the same medications will be continued. 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 11Data migrated from [facility] on 07/29/2016. Please see above. 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 12Data migrated from [facility] on 07/29/2016. The symptoms the patient describes in the history of present illness and findings on the neurological examination are suggestive of either median neuropathy(ies) at the wrists and/or cervical radiculopathies. Ms. Shi declines further evaluation or treatment at this time. Originally documented as Left median nerve neuropathy. 13Data migrated from [facility] on 07/04/2016. Please see above. 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 14Data migrated from [facility] on 07/04/2016. The symptoms the patient describes in the history of present illness and findings on the neurological examination are suggestive of either median neuropathy(ies) at the wrists and/or cervical radiculopathies. Ms. Shi declines further evaluation or darrius Originally documented as Left median nerve neuropathy. 15Data migrated from [facility] on 06/16/15. Well controlled. Treatment with venlafaxine ER will be continued. Originally documented as Depression. 16Data migrated from [facility] on 06/16/15. Stable. Continue treatment with venlafaxine. Originally documented as Depression. 17Data migrated from [facility] on 07/29/2016. Well controlled per the patient. Treatment with venlafaxine will be continued. Originally documented as Recurrent major depressive disorder, in partial remission. 18Data migrated from [facility] on 07/04/2016. Well controlled per the patient. Treatment with venlafaxine will be continued. Originally documented as Recurrent major depressive disorder, in partial remission. 19Post brain tumor Allergies, Adverse Reactions, Alerts Substance Reaction Severity Status NKDA Active Medications No data available for this section Results No data available for this section Immunizations Given and Recorded Vaccine Date Status Refusal Reason influenza virus vaccine, inactivated 04/30/14 Given Procedures Procedure Date Related Diagnosis Body Site Status Breast augmentation Completed Creation of BENCHROOM SHOP OPTICIAN shunt Completed Creation of BENCHRO[employer] SHOP OPTICIAN shunt Completed Procedure on brain1 Completed Tonsillectomy [...]
--- OUTSIDE RECORDS SUMMARY | 2018-07-27 14:16 | XMS REPORT ---
Author Author Dr. Judy Albright Organization [employer] Address Unknown Phone Unavailable Care Team Providers Care Supplier Engineer Name Role Phone Dr. Judy Albright [...] Epilepsy G40.909 Active Assessment Depression F32.9 Active Assessment Genital herpes A60.00 Active Medications Medication Code System Code Instructions Start Date End Date Status Dosage [facility] [address]-54 400 MG Orally Three times a day Mar 28, 2015 Active 1 tablet Levetiracetam [facility] [address]-71 1000 mg Orally Twice a day Active 1 tablet Sleep Aid [facility] [address]-12 Orally Once a day Active 1 tablet at bedtime as needed Venlafaxine HCl ER [facility] [address]-52 150MG Orally Once a day Active 1 tablet with food Phenytoin Sodium Extended [facility] [address]-75 100 MG Orally Once every night December 16, 2014 Active 3 capsules Social History Social History Element Qualifiers Date [...] No Mar 28, 2015 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
--- OUTSIDE RECORDS SUMMARY | 2018-07-27 14:16 | XMS REPORT ---
Author Author Dr. Judy Albright Organization [employer] Address Unknown Phone Unavailable Care Team Providers Care Passenger Train Braker Name Role Phone Dr. Judy Albright CP [...] Anatoly Shrestha [place], [place] Feb 27, 2015 Seizures Anatoly Shrestha MD, [place] Mar 05, 2016 Rx for phenytoin Anatoly Shrestha [place], [place] October 01, 2015 2 month follow up;Rescheduled..Dr. Albright ill Anatoly Shrestha MD, [place] October 23, 2015 [place] Shrestha MD, [facility] August 12, 2015 Follow up after hospital discharge. Anatoly Shrestha MD, [place] August 21, 2015 Problems Problem Type Condition ICD-9 Code Onset Dates Condition Status Problem Depression F32.9 Active Problem Epilepsy G40.909 Active Social History Social History Element Qualifiers Date Reported Highest level of education completed: . 2 years of College December 11, 2015 Tobacco Use: . Are you a: former smoker quit in 2009December 11, 2015 Use of recreational / street drugs? . Answer: No December 11, 2015 Marital Status: . December 11, 2015 Caffeine intake? . Status: Yes, What type: Coffee, 1 - 2 cup(s) a day December 11, 2015 Do you exercise? . Answer: Yes, Type: walking 1 mile 2x a week December 11, 2015 Do you drink alcohol? . 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
--- OUTSIDE RECORDS SUMMARY | 2018-07-27 14:16 | XMS REPORT ---
Author Author Judy Albright Organization [employer] Address Unknown Phone Unavailable Care Team Providers Care Acid Strength Inspector Name Role Phone Judy Albright Unavailable Encounters Encounter Location Date f/u [place] July 29, 2014 Allergy to new medication Anatoly Shrestha [place], [place] August 29, 2014 Problems Problem Type Condition ICD-9 Code Onset Dates Condition Status Problem Depression 311 Active Problem Epilepsy 345.90 Active Social History Social History Element Qualifiers Date Reported Highest level of education completed: . 2 years of College July 29, 2014 Tobacco Use: . Are you a: former smoker quit in 2009July 29, 2014 Use of recreational / street drugs? . Answer: No July 29, 2014 Marital Status: . July 29, 2014 Caffeine intake? . Status: Yes, What type: Coffee, 1 - 2 cup(s) a day July 29, 2014 Do you exercise? . Answer: Yes, Type: walking 1 mile 2x a week July 29, 2014 Do you drink alcohol? . 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
--- OUTSIDE RECORDS SUMMARY | 2018-07-27 14:16 | XMS REPORT ---
Author Author Dr. Judy Albright [facility] [employer] Address Unknown Phone Unavailable Care Team Providers Care Gas Transfer Operator Name Role Phone Dr. Judy Albright CP [...] 2015 Allergy to new medication Anatoly Shrestha MD, [place] August 29, 2014 Follow up after hospital discharge. Anatoly Shrestha MD, [place] August 21, 2015 2 month fu Anatoly Shrestha MD, PA [...] Start Date End Date Status Dosage Levetiracetam [facility] [address]-31 250 MG Orally Twice a day Active 1 tablet Venlafaxine HCl ER [facility] [address]-82 150MG Orally Once a day Active 1 tablet with food Levetiracetam [facility] [address]-70 1000 mg Orally Twice a day Active 1 tablet Phenytoin Sodium Extended [facility] [address]-83 100 MG Orally Once every night December 16, 2014 Active 3 capsules Acyclovir [facility] [address]-65 400 MG Orally Three times a day Mar 28, 2015 Active 1 tablet Night Time Sleep Aid [facility] [address]-67 50 mg Orally Once a day Active [...] No August 21, 2015 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
--- OUTSIDE RECORDS SUMMARY | 2018-07-27 14:16 | XMS REPORT | Summary of Care ---
Author Organization Unknown Address Unknown Phone Unavailable Encounter [facility](KENDRA) [id number] Date(s): 11/11/14 - 11/12/14 [facility] [address] [place] [address]- Discharge Disposition: Home Physician Attending: Al Caruso MD Physician Admitting: Al Caruso MD Vital Signs 1 2 3 Most recent to oldest [Reference Range]: 162.56 cm (11/11/14 10:03 PM) 162.56 cm (11/11/14 5:47 PM) Height 98.1 DegF (11/12/14 10:54 AM) 98.4 DegF (11/12/14 7:42 AM) 97.9 DegF (11/12/14 4:00 AM) Temperature Oral [96.4-99.1 DegF] 148/56 mmHg *HI* (11/12/14 11:45 AM) 120/66 mmHg (11/12/14 10:54 AM) 133/72 mmHg (11/12/14 7:42 AM) Blood Pressure [90-140/60-90 mmHg] 18 BRMIN (11/12/14 10:54 AM) 18 BRMIN (11/12/14 7:42 AM) 17 BRMIN (11/12/14 4:00 AM) Respiratory Rate [14-20 BRMIN] 71 bpm (11/12/14 10:54 AM) 61 bpm (11/12/14 7:42 AM) 75 bpm (11/12/14 4:00 AM) Peripheral Pulse Rate [60-100 bpm] 64.574 kg (11/11/14 10:03 PM) 61.364 kg (11/11/14 5:47 PM) Weight 24.44 m2 (11/11/14 10:03 PM) 23.22 m2 (11/11/14 5:47 PM) Body Mass Index Problem List Condition Effective Dates Status Health Status Informant Acute renal Resolved failure(Confirmed) Brain Resolved tumor(Confirmed) Breast Resolved augmentation(Confirm ed) Parkinsons(Confirmed Resolved ) Peripheral vision Resolved loss(Confirmed) Seizure(Confirmed)1 Resolved TREASURY ASSOCIATE shunt(Confirmed) Resolved 1Post brain tumor Allergies, Adverse Reactions, Alerts Substance Reaction Severity Status NKDA Active Medications acetaminophen 650 mg, 2 tab, Route: PO, Drug form: TAB, Q4H, Dosing Weight 61.364, kg, PRN Porfirio n 1-3/Temp > 100.4 F, Start date: 11/11/14 21:06:00, Duration: 30 day, Stop date: 12/11/14 21:05:00 Notes: Do not exceed 4 gm/day. (Same as: Tylenol) Start Date: 11/11/14 Stop Date: 11/12/14 Status: Discontinued acetaminophen-hydrocodone 325 mg-5 mg oral tablet 1 tab, Route: PO, Drug Form: TAB, Dosing Weight 61.364, kg, Q4H, PRN Pain Score 1-3, Start date: 11/11/14 21:06:00, Duration: 30 day, Stop date: 12/11/14 21:05: 00 Notes: (Same as: [place] 325/5) Do not exceed 4gm/day of acetaminophen. Start Date: 11/11/14 Stop Date: 11/12/14 Status: Discontinued BD Normal Saline Flush 10 mL, Route: IV, Drug Form: INJ, PRN, PRN Line Flush, Start date: 11/12/14 11:1 4:00, Duration: 30 day, Stop date: 12/12/14 11:13:00 Notes: (Same as: BD Posiflush) Start Date: 11/12/14 Stop Date: 11/12/14 Status: Discontinued BD Normal Saline Flush 5 mL, Route: IV, Drug Form: INJ, PRN, PRN Line Flush, Start date: 11/12/14 11:14 :00, Duration: 30 day, Stop date: 12/12/14 11:13:00 Notes: (Same as: BD Posiflush) Start Date: 11/12/14 Stop Date: 11/12/14 Status: Discontinued Dilantin 100 mg, 2 mL, Route: IVP, Drug form: INJ, Q8H, Dosing Weight 61.364, kg, Start d ate: 11/12/14 4:00:00, Duration: 30 day, Stop date: 12/11/14 20:00:00 Notes: (Same as: Dilantin) Do not infuse greater than 50 mg/min. MEDICATION WASTE Product Size: 100 mgProduct Wasted: ___ mg Start Date: 11/12/14 Stop Date: 11/12/14 Status: Discontinued docusate 100 mg, 1 cap, Route: PO, Drug form: CAP, BID, Dosing Weight 61.364, kg, PRN Con stipation, Start date: 11/11/14 21:06:00, Duration: 30 day, Stop date: 12/11/14 21:05:00 Notes: (Same as: Colace) (Do Not Crush) Start Date: 11/11/14 Stop Date: 11/12/14 Status: Discontinued fosphenytoin + Sodium Chloride 0.9% IV 100 mL 1,227.28 mg, 24.55 mL, Route: IVPB, Drug form: INJ, ONCE, Dosing Weight 61.364, kg, Priority: STAT, Start date: 11/11/14 20:14:00, Stop date: 11/11/14 20:14:00 Notes: (Same as: Cerebyx) Stated mg=mgPE. Refrigerate ANTICONVULSANT Do no t confuse with celebrex. MEDICATION WASTE Product Size: 500 mgProduct W asted: 727.28 mg Start Date: 11/11/14 Stop Date: 11/11/14 Status: Completed Keppra 1000 mg oral tablet 1,000 mg=1 tab, PO, BID, # 60 tab, 2 Refill(s) Start Date: 11/12/14 Status: Ordered Keppra 1000 mg oral tablet 1,000 mg=1 tab, PO, BID, # 60 tab, 0 Refill(s) Start Date: 11/11/14 Stop Date: 11/12/14 Status: Discontinued Keppra 1000 mg oral tablet 1,000 mg, 2 tab, Route: PO, Drug form: TAB, Q12H, Dosing Weight 61.364, kg, Star t date: 11/11/14 22:00:00, Duration: 30 day, Stop date: 12/11/14 21:00:00 Notes: (Same as:Lima) Start Date: 11/11/14 Stop Date: 11/12/14 Status: Discontinued phenytoin 100 mg oral capsule, extended release 300 mg=3 cap, PO, Bedtime, # 90 cap, 0 Refill(s) Start Date: 11/12/14 Stop Date: 12/12/14 Status: Ordered phenytoin extended release 300 mg, 3 cap, Route: PO, Drug form: ERCAP, Bedtime, Dosing Weight 64.574, kg, S tart date: 11/12/14 21:00:00, Duration: 30 day, Stop date: 12/11/14 21:00:00 Start Date: 11/12/14 Stop Date: 11/12/14 Status: Canceled Saline Flush 0.9% 10 mL, Route: IVP, Drug Form: INJ, Dosing Weight 61.364, kg, PRN, PRN Line Flush , Start date: 11/11/14 18:21:00, Duration: 30 day, Stop date: 12/11/14 18:20:00 Notes: (Same as: BD Posiflush) Start Date: 11/11/14 Stop Date: 11/12/14 Status: Discontinued Sodium Chloride 0.9% IV 25 mL, Route: IV, Start date: 11/12/14 11:14:00, Duration: 30 day, Stop date: 11:13:00, PRN Line Flush Start Date: 11/12/14 Stop Date: 11/12/14 Status: Discontinued venlafaxine 150 mg, 1 cap, Route: PO, Drug form: ERCAP, Daily, Dosing Weight 64.574, kg, Sta rt date: 11/12/14 9:00:00, Duration: 30 day, Stop date: 12/11/14 9:00:00 Notes: Do not open, crush, or chew. (Same As: Effexor XR) Start Date: 11/12/14 Stop Date: 11/12/14 Status: Discontinued Results ELECTROLYTES Most recent to 1 2 oldest [Reference Range]: Sodium Lvl [135-145 144 mEq/L 141 mEq/L mEq/L] (11/12/14 3:11 AM) (11/11/14 6:31 PM) Potassium Lvl 3.8 mEq/L 3.5 mEq/L [3.5-5.1 mEq/L] (11/12/14 3:11 AM) (11/11/14 6:31 PM) Chloride Lvl [95-109 107 mEq/L 103 mEq/L mEq/L] (11/12/14 3:11 AM) (11/11/14 6:31 PM) CO2 [24-32 mEq/L] 28 mEq/L 27 mEq/L (11/12/14 3:11 AM) (11/11/14 6:31 PM) AGAP [10.0-20.0 12.8 mEq/L 14.5 mEq/L mEq/L] (11/12/14 3:11 AM) (11/11/14 6:31 PM) CHEM PANEL Most recent to 1 2 oldest [Reference Range]: Creatinine Lvl 0.9 mg/dL 1.1 mg/dL [0.5-1.4 mg/dL] (11/12/14 3:11 AM) (11/11/14 6:31 PM) eGFR 68 mL/min/1.73m2 1 54 mL/min/1.73m2 2 *NA* *NA* (11/12/14 3:11 AM) (11/11/14 6:31 PM) BUN [7-22 mg/dL] 15 mg/dL 12 mg/dL (11/12/14 3:11 AM) (11/11/14 6:31 PM) B/C Ratio [6-25] 11 (11/11/14 6:31 PM) Glucose Lvl [70-99 76 mg/dL 3 98 mg/dL 4 mg/dL] (11/12/14 3:11 AM) (11/11/14 6:31 PM) Total Protein 7.7 g/dL [6.4-8.4 g/dL] (11/11/14 6:31 PM) Albumin Lvl [3.5-5.0 4.2 g/dL g/dL] (11/11/14 6:31 PM) Globulin [2.0-4.0 3.5 g/dL g/dL] (11/11/14 6:31 PM) A/G Ratio [0.7-1.6] 1.2 (11/11/14 6:31 PM) Calcium Lvl 8.5 mg/dL 9.3 mg/dL [8.5-10.5 mg/dL] (11/12/14 3:11 AM) (11/11/14 6:31 PM) Magnesium Lvl 2.3 mg/dL [1.8-2.4 mg/dL] (11/12/14 3:11 AM) ALT [0-65 unit/L] 31 unit/L (11/11/14 6:31 PM) AST [0-37 unit/L] 20 unit/L (11/11/14 6:31 PM) Alk Phos [39-136 98 unit/L unit/L] (11/11/14 6:31 PM) Bili Total [0.2-1.3 0.6 mg/dL mg/dL] (11/11/14 6:31 PM) 1Result Comment: The eGFR is calculated [...] be mul tiplied by the estimated BMI. 3Interpretive Data: Adult reference range values reflect the clinical guidelines of the [employer]. 4Interpretive Data: Adult reference range values reflect the clinical guidelines of the [employer]. URINE AND STOOL Most recent to 1 2 oldest [Reference Range]: UA Turbidity [Clear] Clear (11/11/14 6:30 PM) UA Color [Yellow] Yellow *NA* (11/11/14 6:30 PM) UA pH [5.0-8.0] 8.0 (11/11/14 6:30 PM) UA Spec Grav 1.010 [<=1.030] (11/11/14 6:30 PM) UA Glucose [Negative Negative mg/dL mg/dL] *NA* (11/11/14 6:30 PM) UA Blood [Negative] Negative (11/11/14 6:30 PM) UA Ketones [Negative Negative mg/dL mg/dL] *NA* (11/11/14 6:30 PM) UA Protein [Negative Negative mg/dL mg/dL] (11/11/14 6:30 PM) UA Urobilinogen <=1.0 mg/dL [0.1-1.0 mg/dL] *NA* (11/11/14 6:30 PM) UA Bili [Negative] Negative *NA* (11/11/14 6:30 PM) UA Leuk Est Moderate [Negative] *ABN* (11/11/14 6:30 PM) UA Nitrite Negative [Negative] (11/11/14 6:30 PM) UA WBC [0-5 /HPF] 9 /HPF *HI* (11/11/14 6:30 PM) UA RBC [0-2 /HPF] 1 /HPF (11/11/14 6:30 PM) UA Sq Epi [Few /LPF] Few /LPF *NA* (11/11/14 6:30 PM) UA Mucus [None Seen Few /LPF /LPF] *NA* (11/11/14 6:30 PM) HEMATOLOGY Most recent to 1 2 oldest [Reference Range]: WBC [3.7-10.4 K/CMM] 9.4 K/CMM 9.5 K/CMM (11/12/14 3:11 AM) (11/11/14 6:31 PM) RBC [4.20-5.40 4.21 M/CMM 4.57 M/CMM M/CMM] (11/12/14 3:11 AM) (11/11/14 6:31 PM) Hgb [12.0-16.0 g/dL] 13.0 g/dL 14.1 g/dL (11/12/14 3:11 AM) (11/11/14 6:31 PM) Hct [36.0-48.0 %] 39.2 % 42.6 % (11/12/14 3:11 AM) (11/11/14 6:31 PM) MCV [80.0-98.0 fL] 93.1 fL 93.3 fL (11/12/14 3:11 AM) (11/11/14 6:31 PM) MCH [27.0-31.0 pg] 30.8 pg 30.9 pg (11/12/14 3:11 AM) (11/11/14 6:31 PM) MCHC [32.0-36.0 33.1 g/dL 33.1 g/dL g/dL] (11/12/14 3:11 AM) (11/11/14 6:31 PM) RDW [11.5-14.5 %] 14.6 % 14.6 % *HI* *HI* (11/12/14 3:11 AM) (11/11/14 6:31 PM) Platelet [133-450 251 K/CMM 291 K/CMM K/CMM] (11/12/14 3:11 AM) (11/11/14 6:31 PM) MPV [7.4-10.4 fL] 8.7 fL 8.9 fL (11/12/14 3:11 AM) (11/11/14 6:31 PM) Segs [45.0-75.0 %] 62.7 % 79.1 % (11/12/14 3:11 AM) *HI* (11/11/14 6:31 PM) Lymphocytes 27.4 % 16.4 % [20.0-40.0 %] (11/12/14 3:11 AM) *LOW* (11/11/14 6:31 PM) Monocytes [2.0-12.0 6.8 % 3.5 % %] (11/12/14 3:11 AM) (11/11/14 6:31 PM) Eosinophils [0.0-4.0 2.7 % 0.6 % %] (11/12/14 3:11 AM) (11/11/14 6:31 PM) Basophils [0.0-1.0 0.4 % 0.4 % %] (11/12/14 3:11 AM) (11/11/14 6:31 PM) Segs-Bands # 5.9 K/CMM 7.5 K/CMM [1.5-8.1 K/CMM] (11/12/14 3:11 AM) (11/11/14 6:31 PM) Lymphocytes # 2.6 K/CMM 1.6 K/CMM [1.0-5.5 K/CMM] (11/12/14 3:11 AM) (11/11/14 6:31 PM) Monocytes # [0.0-0.8 0.6 K/CMM 0.3 K/CMM K/CMM] (11/12/14 3:11 AM) (11/11/14 6:31 PM) Eosinophils # 0.3 K/CMM 0.1 K/CMM [0.0-0.5 K/CMM] (11/12/14 3:11 AM) (11/11/14 6:31 PM) Basophils # [0.0-0.2 0.0 K/CMM K/CMM] (11/11/14 6:31 PM) RBC Morph Normal (11/12/14 3:11 AM) Plt Morph Normal (11/12/14 3:11 AM) PT [12.0-14.7 12.9 seconds seconds] (11/11/14 6:31 PM) INR [0.85-1.17] 0.97 5 (11/11/14 6:31 PM) PTT [22.9-35.8 28.2 seconds 6 seconds] (6/15/15 6:31 PM) 5Interpretive Data: RECOMMENDED RANGES FOR PROTIME INR: 2.0-3.0 for most medical and surgical thromboembolic states. 2.5-3.5 for artificial heart valves and recurrent embolism. INR SHOULD BE USED ONLY FOR PATIENTS ON STABLE ANTICOAGULANT THERAPY. 6Interpretive Data: Heparin Therapeutic Range: 57 - 92 Seconds Immunizations Vaccine Date Refusal Reason influenza virus vaccine, inactivated 04/30/14 Procedures Procedure Date Related Diagnosis Body Site Breast augmentation Creation of TREASURY ASSOCIATE shunt Procedure on brain1 1muti brain surgeries x4 Social History Social History Type Response Smoking Status Former smoker; Exposure to Tobacco Smoke None; Cigarette Smoking Last 365 Days No; Reg Smoking Cessation Counseling No Assessment and Plan No data available for this section
--- OUTSIDE RECORDS SUMMARY | 2018-07-27 14:16 | XMS REPORT ---
Author Author Judy Albright Organization [employer] Address Unknown Phone Unavailable Care Team Providers Care Financial Analyst Name Role Phone Judy Albright Unavailable Encounters Encounter Location Date Rx Refill [facility] [place] [place] November 06, 2014 Phenytoin Refill [facility] [place] December 16, 2014 seizures [facility] [place] December 20, 2014 f/u [facility] [place] [place] July 29, 2014 Allergy to new medication [facility], [place] August 29, 2014 2 month fu [facility] [place] [place] October 24, 2014 Problems Problem Type Condition ICD-9 Code Onset Dates Condition Status Problem Depression 311 Active Problem Epilepsy 345.90 Active Medications Medication Code System Code Instructions Start Date End Date Status Dosage Venlafaxine HCl ER [facility] [address]-66 150MG Orally Once a day Active take one tablet by mouth once daily with food Phenytoin Sodium Extended [facility] [address]-80 100 MG Orally once every night December 16, 2014 Active 3 capsules Vimpat [facility] [address]-44 100 MG Orally Twice a day May 06, 2014 Active 1 tablet Levetiracetam [facility] [address]-09 1000 MG Orally every 12 hrs Active 1 tablet Sleep Aid [facility] [address]-92 Orally Once a day Active 1 tablet at bedtime as needed Social History Social History Element Qualifiers Date Reported Highest level of education completed: . 2 years of College October 24, 2014 Tobacco Use: . Are you a: former smoker quit in 2009October 24, 2014 Use of recreational / street drugs? . Answer: No October 24, 2014 Marital Status: . October 24, 2014 Caffeine intake? . Status: Yes, What type: Coffee, 1 - 2 cup(s) a day October 24, 2014 Do you exercise? . Answer: Yes, Type: walking 1 mile 2x a week October 24, 2014 Do you drink alcohol? . 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
--- OUTSIDE RECORDS SUMMARY | 2018-07-27 14:16 | XMS REPORT ---
Author Author Judy Albright Organization [employer] Address Unknown Phone Unavailable Care Team Providers Care Clinical Resource Coordinator Name Role Phone Judy Albright CP Unavailable Allergies, Adverse Reactions, Alerts Substance Reaction Event Type N.K.D.A. 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
--- OUTSIDE RECORDS SUMMARY | 2018-07-27 14:16 | XMS REPORT ---
Author Author Dr. Judy Albright Organization [employer] Address Unknown Phone Unavailable Care Team Providers Care Lithographic Plate Maker Name Role Phone Dr. Judy Albright CP [...] 2014 Discuss nose bleeds Anatoly Shrestha MD, [facility] Mar 28, 2015 Ms. 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
--- OUTSIDE RECORDS SUMMARY | 2018-07-27 14:16 | XMS REPORT ---
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
--- OUTSIDE RECORDS SUMMARY | 2018-07-27 14:17 | XMS REPORT ---
Author Author Dr. Anatoly Shrestha Organization [employer] Address Unknown Phone Unavailable Care Team Providers Care Business System Manager Name Role Phone Dr. Anatoly Shrestha CP Unavailable Encounters Encounter Location Date Rx Refill [facility] November 06, 2014 Phenytoin Refill [facility] [place] December 16, 2014 seizures [facility] [place] December 20, 2014 Unknown [facility] [place] December 23, 2014 f/u [facility] [place], [place] July 29, 2014 Allergy to new medication [facility], [place] August 29, 2014 2 month fu [facility], [place] October 24, 2014 Discuss nose bleeds Anatoly Shrestha MD, [facility] Mar 28, 2015 Unknown [facility], [place] Jul 12, 2016 Rx for Venlafaxine [facility], [place] Jul 09, 2016 Ms. Shi status [facility]oly Shrestha [facility], [place] Dec 31, 2014 Side effects [facility], [place] Feb 27, 2015 Unknown [facility], [place] Jun 04, 2016 Symptoms Anatoly Shrestha MD, [facility] Jun 11, 2016 Seizures [facility], [place] Mar 05, 2016 Returned call [facility], [place] Mar 12, 2016 Rx for phenytoin [facility], [place] October 01, 2015 2 month follow up;Rescheduled..Dr. Jose Ramon [place] October 23, 2015 [place] Shrestha [place], [place] August 12, 2015 Follow up after hospital discharge. 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 [address]-70 400 MG Orally as needed Mar 28, 2015 Active 1 tablet Night Time Sleep Aid [facility] [address]-61 50 mg Orally Once a day Active 1 tablet at bedtime Phenytoin Sodium Extended [facility] [address]-76 100MG Active TAKE 3 CAPSULES BY MOUTH EVERY NIGHT FOR [address] [facility] [address]-27 100 MG Orally Once a day Active 3 capsules Once every night Orally [address] [facility] 38641529078 1000MG Orally Twice a day Active 1 [address] [facility] [address]-92 150MG Orally Once a day Active 1 tablet with food Social History Social History Element Qualifiers Date Reported Highest level of education completed: . 2 years of College Jun 30, 2016 Tobacco Use: . Are you a: former smoker quit in 2009Jun 30, 2016 Use of recreational / street drugs? . Answer: No Jun 30, 2016 Marital Status: . Jun 30, 2016 Caffeine intake? . Status: Yes, What type: Coffee, 1 - 2 cup(s) a day Jun 30, 2016 Do you exercise? . Answer: Yes, Type: walking 1 mile 2x a week Jun 30, 2016 Do you drink alcohol? . 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
--- OUTSIDE RECORDS SUMMARY | 2018-07-27 14:17 | XMS REPORT ---
Author Author Dr. Anatoly Shrestha Organization [employer] Address Unknown Phone Unavailable Care Team Providers Care Ice Skater Name Role Phone Dr. Anatoly Shrestha CP [...] 2014 2 month fu Anatoly Shrestha MD, [facility] October 24, 2014 Discuss nose bleeds Anatoly Shrestha MD, [facility] Mar 28, 2015 Ms. Shi status [facility]oly Sh[facility]ha [facility], [place] Dec 31, 2014 Side effects Anatoly Shrestha MD, [facility] Feb 27, 2015 Unknown [facility]ha [facility], [place] Jun 04, 2016 Seizures Anatoly Shrestha MD, [facility] Mar 05, 2016 Returned call Anatoly Shrestha [...] Start Date End Date Status [facility] [address]-87 500 MG Orally Twice a day Active 2.5 tablets Night Time [facility] [address]-37 50 mg Orally Once a day Active 1 tablet at bedtime [facility] 76578893936 1000MG Orally Twice a day Active 1 tablet Venlafaxine HCl ER [facility] [address]-28 150MG Orally Once a day Active 1 tablet with food Acyclovir [facility] [address]-92 400 MG Orally Three times a day Mar 28, 2015 Active 1 tablet Phenytoin Sodium Extended [facility] [address]-50 100 MG Orally Once a day Active 3 capsules Once every night Orally 30 days Social History Social History Element Qualifiers Date [...] No December 11, 2015 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
--- OUTSIDE RECORDS SUMMARY | 2018-07-27 14:17 | XMS REPORT ---
Author Author Dr. Judy Albright Organization [employer] Address Unknown Phone Unavailable Care Team Providers Care Hob Grinder Name Role Phone Dr. Judy Albright CP Unavailable Encounters Encounter Location Date Rx Refill [facility] [place] November 06, 2014 Phenytoin Refill [facility] [place] December 16, 2014 seizures [facility] MD [place] December 20, 2014 Unknown [facility] [place], [place] December 23, 2014 f/u [facility] Sh[facility] [place], [place] July 29, 2014 Allergy to new medication Anatoly Shrestha MD, [facility] August 29, 2014 2 month fu [facility], [place] October 24, 2014 Discuss nose bleeds Anatoly Shrestha MD, [facility] Mar 28, 2015 Rx for Venlafaxine [facility] [place] Jul 09, 2016 Ms. Shi status [facility]oly Shrestha [facility], [place] Dec 31, 2014 Side effects Anatoly Shrestha MD, [facility] Feb 27, 2015 Unknown [facility], [place] Jun 04, 2016 Symptoms An[facility]oly Sh[facility]ha MD, [place] Jun 11, 2016 Seizures [facility] [place], [place] Mar 05, 2016 Returned call [facility]oly Sh[facility]ha [facility], [place] Mar 12, 2016 Rx for phenytoin [facility], [place] October 01, 2015 2 month follow up;Rescheduled..Dr. Albright ill [facility] [place], [place] October 23, 2015 [place] Shrestha [place] August 12, 2015 Follow up after hospital discharge. Anatoly Shrestha MD [place] August 21, 2015 Medication refill [facility] Shrestha [facility], [place] Jun 30, 2016 Problems Problem Type Condition ICD-9 Code Onset Dates Condition Status Assessment Recurrent major depressive disorder, in partial remission F33.41 Active Problem Nonintractable generalized idiopathic epilepsy without [...] Instructions Start Date End Date Status Dosage Phenytoin Sodium Extended [facility] [address]-05 100 MG Orally Once a day Active 3 capsules Once every night Orally 30 days Night Time Sleep Aid [facility] [address]-12 50 mg Orally Once a day Active 1 tablet at bedtime Levetiracetam [facility] 83915540928 1000MG Orally Twice a day Active 1 tablet Acyclovir [facility] [address]-23 400 MG Orally as needed Mar 28, 2015 Active 1 tablet Venlafaxine HCl ER [facility] [address]-86 150MG Orally Once a day Active 1 tablet with food Phenytoin Sodium Extended [facility] [address]-95 100MG Active TAKE 3 CAPSULES BY MOUTH EVERY NIGHT FOR 30 DAYS Social History Social History Element Qualifiers Date [...] No Jun 30, 2016 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
--- OUTSIDE RECORDS SUMMARY | 2018-07-27 14:17 | XMS REPORT ---
Author Author Dr. Anatoly Shrestha Organization [employer] Address Unknown Phone Unavailable Care Team Providers Care Director Ambulatory Name Role Phone Dr. Anaotly Shrestha CP Unavailable Encounters Encounter Location Date [...] Jun 11, 2016 Seizures Anatoly Shrestha MD, [facility] Mar 05, 2016 Returned call Anatoly Shrestha MD, [facility] Mar 12, 2016 Rx for phenytoin Anatoly Shrestha MD, [facility] October 01, 2015 2 month follow up;Rescheduled..Dr. Albright ill [facility]oly Shrestha [place], [place] October 23, 2015 [place] Sh[place] [place], [place] August 12, 2015 Follow up after hospital discharge. 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
--- OUTSIDE RECORDS SUMMARY | 2018-07-27 14:17 | XMS REPORT ---
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 Unavailable Unavailable Problems This patient has no known problems. Allergies, Adverse Reactions, Alerts This patient has no known allergies or adverse reactions. Medications This patient has no known medications. Encounters Start Date/Time End Date/Time Encounter Type Admission Type Attending Clinicians Care Facility Care Department Encounter ID 2017-03-31 10:17:00 2017-03-31 10:17:00 Emergency E GIOVANNI SHERMAN [facility] MED [id number] Results Test Description Test Time Test Comments Text Results Atomic Results Result Comments Comprehensive Metabolic Panel 2017-03-31 11:58:00 Sodium (test code=NA) 142 mmol/L 135-145 Potassium (test code=K) 3.5 mmol/L 3.5-5.1 Chloride (test code=CL) 99 mmol/L 98-105 Carbon Dioxide (test code=CO2) 27 mmol/L 22-29 Glucose (test code=GLU) 109 mg/dL 70-115 Blood Urea Nitrogen (test code=BUN) 16 mg/dL 8-23 Creatinine (test code=CREAT) 0.9 mg/dL 0.5-0.9 Calcium (test code=CA) 9.5 mg/dL 8.3-10.5 Prot Total (test code=TP) 7.2 g/dL 6.4-8.3 Albumin (test code=ALB) 4.6 g/dL 3.5-5.2 A/G Ratio (test code=AGRATIO) 1.8 Ratio Globulin (test code=GLOB) 2.6 2.9-3.1 Bili Total (test code=TBIL) 0.4 mg/dL 0.1-0.9 Alk Phos (test code=APHOS) 73 U/L 35-104 AST (test code=AST) 26 U/L 1-32 ALT (test code=ALT) 32 U/L 1-33 BUN/Creatinine Ratio (test code=BCRATIO) 17.8 Anion Gap (test code=AGAP) 16 mmol/L 7-16 Estimated GFR (test code=GFR) >60 mL/min/1.73m2 eGFR (estimated Glomerular Filtration Rate) is an estimated value,calculated from the patient's serum creatinine using the MDRD equation.It is NOT the patient's actual GFR. The eGFR provides a more clinicallyuseful measure of kidney disease than serum creatinine alone.This calculation takes sex and race into account, if the informationis provided. If the race is not provided, and the patient isAfrican-Albanian, multiply by 1.212. If sex is not provided, and thepatient is female, multiply by 0.742. Results for patients <18 years ofage have not been validated by the MDRD study and should be interpretedwith caution.eGFR Result Interpretation:eGFR > or=60 is in the Normal RangeeGFR < 60 may mean kidney diseaseeGFR < 15 may mean kidney failureRanges recommended by the National Kidney Foundat ion,http://nkdep.nih.gov CBC with [id number] 11:54:00* Test Item Value Reference Range Comments WBC (test code=WBC) 9.1 K/cumm 4.4-10.5 RBC (test code=RBC) 4.34 M/cumm 3.75-5.20 Hemoglobin (test code=HGB) 14.7 gm/dL 12.2-14.8 Hematocrit (test code=HCT) 41.5 % 36.5-44.4 MCV (test code=MCV) 95.7 fL 80-100 MCH (test code=MCH) 33.8 pg 27.0-32.5 MCHC (test code=MCHC) 35.3 g/dL 32.0-37.5 RDW (test code=RDW) 11.9 % 11.5-14.5 Platelet Count (test code=PLTCT) 187 K/cumm 140-440 MPV (test code=MPV) 8.6 fL Diff Method (test code=DIFFM) Auto Neutrophil (test code=NEUT) 72.5 % 36-70 Lymphocyte (test code=LYMPH) 21.7 % 12-44 Monocyte (test code=MONO) 4.9 % 0-11 Eosinophil (test code=EOS) 0.5 % 0-7 Basophil (test code=BASO) 0.5 % 0-2 Neutro Abs (test code=ANEUT) 6.6 K/cumm 1.6-7.4 Lymph Abs (test code=ALYMPH) 2.0 K/cumm 0.5-4.6 Falls Abs (test code=AMONO) 0.4 K/cumm 0.0-1.2 Eos Abs (test code=AEOS) 0.04 K/cumm 0.00-0.74 Baso Abs (test code=ABASO) 0.1 K/cumm 0.00-0.21 Urinalysis [id number] 11:41:00* Test Item Value Reference Range Comments Color (test code=COLOR) Straw Yellow,Straw,Pl yellow Clarity (test code=CLAR) Clear Clear Specific Desdemona (test code=SPGR) 1.005 1.001-1.035 pH (test code=PH) 7.0 5.0-9.0 Ketone (test code=KET) Negative mg/dL Negative Glucose (test code=GLUCUR) Negative mg/dL Negative Protein (test code=PROT) Negative mg/dL Negative Bilirubin (test code=BILI) Negative mg/dL Negative Occult Blood (test code=UDOB) Negative Negative Urobilinogen (test code=UROB) 0.2 mg/dL 0.2-1.0 Nitrite (test code=NIT) Negative Negative Leuk Esterase (test code=LEUK) Negative Negative Micros Exam (test code=MEXAM) Not indicated CT HEAD OR BRAIN WO [id number] 10:53:43CT HEAD WITHOUT CONTRASTLOCATION: [id number]: Head CT 03/29/2017 at 1634INDICATION: DizzinessTechnique: Noncontrast axial scans were obtained from skull base to the vertex. Coronal and sagittal reconstructions obtained from the axial data. Oneor more of the following dose reduction techniques were used: Automatedexposure control, adjustment of the mA and/or kV according to patientsize, and/or utilization of iterative reconstruction technique.DISCUSSION:Scalp/Skull:Right parietal craniotomy changes are noted.Brain sulci: Overall for patient's age.Ventricles: Grossly normal in size and configuration.Extra-axial spaces:A short catheter terminates along the right lateral aspect of the thirdventricle. Otherwise, no masses or fluid collections.Parenchyma: Prominent cystic encephalomalacia along the right inferior parietallobule is grossly stable.Subtle focal encephaloma lacia is seen along the left superior frontalsulcus; subtle focal thin cortical hyperdensity is seen in this region.A left frontal calvarial gonzalo hole is seen a djacent to this subtle areaof left frontal encephalomalacia.Mild periventricular white matter hypodensities are likely chronicmicrovascular ischemic changes.Oth erwise, no mass, hemorrhage, or large vascular territory acuteinfarct.Dural sinu ses: No abnormal densities.Sellar/Suprasellar region: Intact.Skull base: Intact .IMPRESSION:1. Subtle focal encephalomalacia along the left superior frontal francisco lcusmay be from remote surgery/instrumentation. Nonspecific subtle focalthin cor tical hyperdensity in this region may be due to artifact,cortical laminar necros is, or trace subarachnoid hemorrhage.2. Otherwise, no acute intracranial abnorm alities.3. Prominent right inferior parietal lobule cystic encephalomalacia.4. CSF shunt catheter terminates along the right lateral thirdventricle. The ventr icles are grossly normal in size and configuration.5. Mild supratentorial chron ic microvascular ischemic change.Phenytoin (Dilantin), [id number] 13:07:00 * Test Item Value Reference Range Comments Phenytoin (test code=PHY) 16.5 ug/mL 10.0-20.0 Comprehensive Metabolic [id number] 04:15:00* Test Item Value Reference Range Comments Sodium (test code=NA) 138 mmol/L 135-145 Potassium (test code=K) 3.9 mmol/L 3.5-5.1 Chloride (test code=CL) 98 mmol/L 98-105 Carbon Dioxide (test code=CO2) 30 mmol/L 22-29 Glucose (test code=GLU) 109 mg/dL 70-115 Blood Urea Nitrogen (test code=BUN) 15 mg/dL 8-23 Creatinine (test code=CREAT) 0.8 mg/dL 0.5-0.9 Calcium (test code=CA) 8.9 mg/dL 8.3-10.5 Prot Total (test code=TP) 6.1 g/dL 6.4-8.3 Albumin (test code=ALB) 4.0 g/dL 3.5-5.2 A/G Ratio (test code=AGRATIO) 1.9 Ratio Globulin (test code=GLOB) 2.1 2.9-3.1 Bili Total (test code=TBIL) 0.4 mg/dL 0.1-0.9 Alk Phos (test code=APHOS) 67 U/L 35-104 AST (test code=AST) 24 U/L 1-32 ALT (test code=ALT) 31 U/L 1-33 BUN/Creatinine Ratio (test code=BCRATIO) 18.8 Anion Gap (test code=AGAP) 10 mmol/L 7-16 Estimated GFR (test code=GFR) >60 mL/min/1.73m2 eGFR (estimated Glomerular Filtration Rate) is an estimated value,calculated from the patient's serum creatinine using the MDRD equation.It is NOT the patient's actual GFR. The eGFR provides a more clinicallyuseful measure of kidney disease than serum creatinine alone.This calculation takes sex and race into account, if the informationis provided. If the race is not provided, and the patient isAfrican-Albanian, multiply by 1.212. If sex is not provided, and thepatient is female, multiply by 0.742. Results for patients <18 years ofage have not been validated by the MDRD study and should be interpretedwith caution.eGFR Result Interpretation:eGFR > or=60 is in the Normal RangeeGFR < 60 may mean kidney diseaseeGFR < 15 may mean kidney failureRanges recommended by the National Kidney Foundat ion,http://nkdep.nih.gov Magnesium, [id number] 04:15:00* Test Item Value Reference Range Comments Magnesium (test code=MG) 2.3 mg/dL 1.7-2.5 CBC with [id number] 04:02:00* Test Item Value Reference Range Comments WBC (test code=WBC) 10.9 K/cumm 4.4-10.5 RBC (test code=RBC) 4.04 M/cumm 3.75-5.20 Hemoglobin (test code=HGB) 13.4 gm/dL 12.2-14.8 Hematocrit (test code=HCT) 38.2 % 36.5-44.4 MCV (test code=MCV) 94.6 fL 80-100 MCH (test code=MCH) 33.1 pg 27.0-32.5 MCHC (test code=MCHC) 35.0 g/dL 32.0-37.5 RDW (test code=RDW) 11.9 % 11.5-14.5 Platelet Count (test code=PLTCT) 213 K/cumm 140-440 MPV (test code=MPV) 8.3 fL Diff Method (test code=DIFFM) Auto Neutrophil (test code=NEUT) 77.1 % 36-70 Lymphocyte (test code=LYMPH) 18.2 % 12-44 Monocyte (test code=MONO) 4.0 % 0-11 Eosinophil (test code=EOS) 0.4 % 0-7 Basophil (test code=BASO) 0.3 % 0-2 Neutro Abs (test code=ANEUT) 8.4 K/cumm 1.6-7.4 Lymph Abs (test code=ALYMPH) 2.0 K/cumm 0.5-4.6 Falls Abs (test code=AMONO) 0.4 K/cumm 0.0-1.2 Eos Abs (test code=AEOS) 0.04 K/cumm 0.00-0.74 Baso Abs (test code=ABASO) 0.0 K/cumm 0.00-0.21 XR CHEST 1 [id number] 03:55:32XR CHEST 1 VIEWLocation:B1Fcxly hours services provided 03/30/2017 3:55 AMIndication:R IJ line placementComparison:Frontal view chest from the prior dayFindings:Interval retraction of the right-sided central venous catheterwhich appears well-positioned at the cavoatrial junction. No otherchanges are noted.Impression: Well-positioned right-sided central venous catheter.Urinalysis [id number] 02:27:00* Test Item Value Reference Range Comments Color (test code=COLOR) Yellow Yellow,Straw,Pl yellow Clarity (test code=CLAR) Clear Clear Specific Desdemona (test code=SPGR) 1.007 1.001-1.035 pH (test code=PH) 7.0 5.0-9.0 Ketone (test code=KET) Negative mg/dL Negative Glucose (test code=GLUCUR) Negative mg/dL Negative Protein (test code=PROT) Negative mg/dL Negative Bilirubin (test code=BILI) Negative mg/dL Negative Occult Blood (test code=UDOB) Negative Negative Urobilinogen (test code=UROB) 0.2 mg/dL 0.2-1.0 Nitrite (test code=NIT) Negative Negative Leuk Esterase (test code=LEUK) Negative Negative Micros Exam (test code=MEXAM) Not indicated Phenytoin (Dilantin), [id number] 20:05:00* Test Item Value Reference Range Comments Phenytoin (test code=PHY) 1.3 ug/mL 10.0-20.0 XR CHEST 1 [id number] 19:18:05Chest one viewCLINICAL INDICATION: MalaiseCOMPARISON: NoneLocation R 16Ventriculoperitoneal shunt traverses the right hemithorax. Lungs areclear. Heart is normal in size. Bony structures are unremarkable.IMPRESSION: MUSIC EDUCATOR shunt on the right, otherwise normalComprehensive Metabolic [id number] 17:33:00* Test Item Value Reference Range Comments Sodium (test code=NA) 133 mmol/L 135-145 Potassium (test code=K) 4.0 mmol/L 3.5-5.1 Chloride (test code=CL) 94 mmol/L 98-105 Carbon Dioxide (test code=CO2) 30 mmol/L 22-29 Glucose (test code=GLU) 132 mg/dL 70-115 Blood Urea Nitrogen (test code=BUN) 18 mg/dL 8-23 Creatinine (test code=CREAT) 0.8 mg/dL 0.5-0.9 Calcium (test code=CA) 9.0 mg/dL 8.3-10.5 Prot Total (test code=TP) 6.9 g/dL 6.4-8.3 Albumin (test code=ALB) 4.6 g/dL 3.5-5.2 A/G Ratio (test code=AGRATIO) 2.0 Ratio Globulin (test code=GLOB) 2.3 2.9-3.1 Bili Total (test code=TBIL) 0.2 mg/dL 0.1-0.9 Alk Phos (test code=APHOS) 82 U/L 35-104 AST (test code=AST) 34 U/L 1-32 ALT (test code=ALT) 39 U/L 1-33 BUN/Creatinine Ratio (test code=BCRATIO) 22.5 Anion Gap (test code=AGAP) 9 mmol/L 7-16 Estimated GFR (test code=GFR) >60 mL/min/1.73m2 eGFR (estimated Glomerular Filtration Rate) is an estimated value,calculated from the patient's serum creatinine using the MDRD equation.It is NOT the patient's actual GFR. The eGFR provides a more clinicallyuseful measure of kidney disease than serum creatinine alone.This calculation takes sex and race into account, if the informationis provided. If the race is not provided, and the patient isAfrican-Albanian, multiply by 1.212. If sex is not provided, and thepatient is female, multiply by 0.742. Results for patients <18 years ofage have not been validated by the MDRD study and should be interpretedwith caution.eGFR Result Interpretation:eGFR > or=60 is in the Normal RangeeGFR < 60 may mean kidney diseaseeGFR < 15 may mean kidney failureRanges recommended by the National Kidney Foundat ion,http://nkdep.nih.gov Magnesium, [id number] 17:33:00* Test Item Value Reference Range Comments Magnesium (test code=MG) 2.2 mg/dL 1.7-2.5 CT HEAD OR BRAIN WO [id number] 17:13:38EXAM: CT Head without contrastLocation code: [id number]: SeizureCOMPARISON: None available.TECHNIQUE: Multiple transaxial images of the brain were obtained wi thoutintravenous contrast using 5mm slices.One or more of the following doseredu ction techniques were used: Automated exposure control, adjustmentof the mA and/ or kV according to patient size, and/or utilization ofiterative reconstruction t echnique. DLP: 1650 mGy-cm FINDINGS: Right frontoparietal temporal craniotomy i s identified. There is a CSFshunt catheter via right parietal bone with tip exte nding to the rightlateral wall of the third ventricle. Ventricular caliber is gr osslywithin normal limits. If prior imaging is available, then comparison isreco mmended.There is encephalomalacia and gliosis involving the right frontoparietal region associated with presumed resection cavity. Please correlate withsurgical history. No definite underlying mass lesion is identified onCT.There is no acute intracranial hemorrhage. No definite mass effect isseen. There is no midline sh ift or extra-axial fluid collection.Posterior cranial fossa structures are withi n normal limits.Paranasal sinuses and mastoid air cells are clear. Intraorbital contentsare within normal limits. Bones of the calvaria and skull base areintact .IMPRESSION:1. Findings compatible with cystic encephalomalacia involving the ri ghtfrontoparietal region. Please correlate with patient's surgical history.Right frontoparietal temporal craniotomy flap is noted.2. CSF shunt catheter via right parietal approach with tip located alongthe lateral border of the third ventri prieto. Ventricular caliber is withinnormal limits. If prior imaging is available, then comparison isrecommended.Prothrombin [id number] 17:11:00* Test Item Value Reference Range Comments PT (test code=PT) 11.00 seconds 9.78-13.35 INR (test code=INR) 0.96 Ratio 0.6-1.2 Partial Thromboplastin [id number] 17:11:00* Test Item Value Reference Range Comments aPTT (test code=PTT) 27.50 seconds 24.39-37.25 CBC with [id number] 17:02:00* Test Item Value Reference Range Comments WBC (test code=WBC) 12.3 K/cumm 4.4-10.5 RBC (test code=RBC) 4.37 M/cumm 3.75-5.20 Hemoglobin (test code=HGB) 14.2 gm/dL 12.2-14.8 Hematocrit (test code=HCT) 42.4 % 36.5-44.4 MCV (test code=MCV) 97.1 fL 80-100 MCH (test code=MCH) 32.5 pg 27.0-32.5 MCHC (test code=MCHC) 33.5 g/dL 32.0-37.5 RDW (test code=RDW) 12.4 % 11.5-14.5 Platelet Count (test code=PLTCT) 250 K/cumm 140-440 MPV (test code=MPV) 8.1 fL Diff Method (test code=DIFFM) Auto Neutrophil (test code=NEUT) 87.1 % 36-70 Lymphocyte (test code=LYMPH) 9.4 % 12-44 Monocyte (test code=MONO) 3.0 % 0-11 Eosinophil (test code=EOS) 0.3 % 0-7 Basophil (test code=BASO) 0.2 % 0-2 Neutro Abs (test code=ANEUT) 10.7 K/cumm 1.6-7.4 Lymph Abs (test code=ALYMPH) 1.1 K/cumm 0.5-4.6 Falls Abs (test code=AMONO) 0.4 K/cumm 0.0-1.2 Eos Abs (test code=AEOS) 0.04 K/cumm 0.00-0.74 Baso Abs (test code=ABASO) 0.0 K/cumm 0.00-0.21 POC Glucose, [id number] 16:32:00* Test Item Value Reference Range Comments POC Glucose (test code=POCGLUC) 119 mg/dL 70-115 If you consider your patient critically ill, the Martin Accu-Chek InformII metershould not be used for Glucose determinations.Draw a venous Glucose and send to the Main Lab for Analysis. [facility] [place] [address] Patient Name: GIOVANI TURPIN MR #: [id number] : 1950 Age/Sex: 67/F Req #: [id number] Adm Physician: Ordered by: ALEN HUERTA MD Report #: [id number] Location: [facility] Room/Bed: Procedure: [id number] MG/MAMMOGRAPHY DIGITAL SC R BILAT Exam Date: 10/19/17 Exam Time: 1100 RE PORT STATUS: Signed #[id number] - MGSCRBIL #BILATERAL DIGITAL SCREENI NG MAMMOGRAM WITH CAD: 10/19/2017 CLINICAL: Routine screening. No prior exams were available for comparison. Current study contains 8 films. The ti ssue of both breasts is predominantly fatty. Current study was also evaluate d with a Computer Aided Detection (CAD) system. There is a benign calcificat ion in the right breast. Bilateral breast implants are intact. No significa nt masses, calcifications, or other findings are seen in either breast. I MPRESSION: BENIGN There is no mammographic evidence of malignancy. A 1 year s creening mammogram is recommended. The patient will be notified by letter of the results. Alondra amin/kathya:10/20/2017 12 :18:56 Licensed Esthetician: Hui TIDWELL(R)(M), [facility] letter sent: Normal Exam Mammogram BI-RADS: 2 Benign D ictated By: ALONDRA COBIAN DO 1218 COPY TO: NICK HUERTA MD
--- OUTSIDE RECORDS SUMMARY | 2018-07-27 14:17 | XMS REPORT ---
Author Author Dr. 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 Judy Albright CP Unavailable Allergies, Adverse Reactions, Alerts Substance Reaction Event Type N.K.D.A. 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 Medications Medication Code System Code Instructions Start Date End Date Status Dosage Venlafaxine HCl ER [facility] [address]-94 150MG Orally Once a day Active 1 tablet with food Acyclovir [facility] [address]-10 400 MG Orally as needed Mar 28, 2015 Active 1 tablet Phenytoin Sodium Extended [facility] [address]-04 100 MG Orally Once a day Active 3 capsules Once every night Orally 30 days Levetiracetam [facility] 55614998614 1000MG Orally Twice a day Active 1 tablet Levetiracetam [facility] [address]-82 500 MG Orally Twice a day Active 2.5 tablets Night Time Sleep Aid [facility] [address]-68 50 mg Orally Once a day Active [...] No Jun 30, 2016 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
[2018-07-27 14:56] VITALS: BP 143/87
== END 2018-07-27 14:57 | disposition home or self-care (01) ==
LOC: ER 14:11
DX: G44.89 Other headache syndrome (principal)
CPT/HCPCS: 99283